=== PATIENT | male | born 1950 | race Caucasian/White ===

== ENCOUNTER 2018-02-02 18:37 | Inpatient (IN) | payer MEDICARE, MEDICAID ==
[~2018-02-02] VITALS: Ht 170.2 cm; Wt 96.8 kg
[2018-02-02] MEDS ORDERED: SODIUM CHLORIDE 0.9% 1000ML BAG (SEPSIS BOLUS) IV ONE (19:30)
[2018-02-02 21:03] LABS: BASOPHILS % 0.5 % (0.0-2.0); EOSINOPHILS % 3.6 % (0.0-5.0); HEMATOCRIT. 33.3 % (42.0-52.0); HEMOGLOBIN. 11.2 g/dL (14.0-18.0); LYMPHOCYTES % 24.2 % (20.0-50.0); MEAN CORPUSCULAR HEMOGLOBIN 30.4 pg (28.0-32.0); MEAN CORPUSCULAR VOLUME 90.7 fL (80.0-94.0); MEAN PLATELET VOLUME 9.6 fl (7.4-10.4); MONOCYTES % 8.9 % (2.0-8.0); NEUTROPHILS % 62.8 % (40.0-76.0); PLATELET 177 x1000/uL (130-400); RED BLOOD CELL COUNT 3.68 mill/uL (4.7-6.1); RED CELL DISTRIBUTION WIDTH 14.1 % (11.6-14.6)
[2018-02-02 21:08] LABS: CHLORIDE 107 mEq/L (98-107)
[2018-02-02 21:09] LABS: PARTIAL THROMBOPLASTIN TIME 24.7 sec (23.4-31.0); PROTHROMBIN TIME 10.1 sec (9.1-11.1)
[2018-02-02 21:30] LABS: CLARITY URINE CLOUDY (CLEAR); COLOR URINE YELLOW (YELLOW); KETONES URINE NEGATIVE (NEGATIVE); LEUKOCYTE ESTERASE URINE 3+ (NEGATIVE); NITRITE URINE NEGATIVE (NEGATIVE); OCCULT BLOOD URINE NEGATIVE (NEGATIVE); PROTEIN URINE NEGATIVE (NEGATIVE)
[2018-02-02] MEDS ORDERED: LEVOFLOXACIN 750MG PREMIX 150 ML IV ONE (21:30)
[2018-02-02] MEDS ORDERED: NITROGLYCERIN 0.4MG TABLET SL SL PRN (22:00)
[2018-02-02] MEDS ORDERED: DOCUSATE SODIUM 100MG CAPSULE PO PRN (22:00)
[2018-02-02] MEDS ORDERED: KETOROLAC 15MG/ML VIAL IV PRN (22:00)
[2018-02-02] MEDS ORDERED: NA PHOS,M-B/NA PHOS,DI-BA ENEMA 118ML PR PRN (22:00)
[2018-02-02] MEDS ORDERED: LORAZEPAM 0.5MG TABLET PO PRN (22:00)
[2018-02-02] MEDS ORDERED: IPRATROPIUM/ALBUTEROL 0.5-3(2.5)MG/3ML NEB INH PRN (22:00)
[2018-02-02] MEDS ORDERED: MORPHINE SULFATE 4 MG/ML CPJ (NOT FOR IM USE) IV PRN (22:00)
[2018-02-02] MEDS ORDERED: GUAIFENESIN 200MG/10ML SUGAR FREE UDC PO PRN (22:00)
[2018-02-02] MEDS ORDERED: ACETAMINOPHEN 325MG TABLET PO PRN (22:00)
[2018-02-02] MEDS ORDERED: TRAMADOL 50MG TABLET PO PRN (22:00)
[2018-02-02] MEDS ORDERED: ONDANSETRON HCL 4MG/2ML INJ IV PRN (22:00)
[2018-02-02] MEDS ORDERED: CLONIDINE 0.1MG TABLET PO PRN (22:00)
[2018-02-02] MEDS ORDERED: MAGNESIUM/ALUMINUM HYDROXIDE/SIMETHICONE 30ML UDC PO PRN (22:00)
[2018-02-02] MEDS: ENOXAPARIN 40MG/0.4ML SYR SUBCUT SCH (22:20)
[2018-02-02 22:38] LABS: T4 FREE 1.2 ng/dL (0.76-1.46)
[2018-02-02 23:04] LABS: FOLIC ACID (FOLATE) SERUM 13.8 ng/mL (>5.38)
[2018-02-02 23:30] VITALS: BP 100/49
[2018-02-03] VITALS: BP 100/41
[2018-02-03] MEDS: SODIUM CHLORIDE 0.9% 1,000 ML IV SCH ×3 (01:27→21:18)
[2018-02-03 01:38] LABS: CREATINE KINASE 66 IU/L (39-308); CREATINE KINASE MB FRACTION < 1.0 ng/mL (0.5-3.6)
[2018-02-03] MEDS ORDERED: CEFTRIAXONE 1 G PREMIX 50 ML IV SCH (02:00)
[2018-02-03 04:00] VITALS: BP 114/61
[2018-02-03 08:07] VITALS: BP 135/69
[2018-02-03 08:21] LABS: CREATINE KINASE 53 IU/L (39-308); CREATINE KINASE MB FRACTION < 1.0 ng/mL (0.5-3.6)
[2018-02-03] MEDS: PANTOPRAZOLE SODIUM 40 MG/VIAL IV SCH (08:49)
[2018-02-03] MEDS: ASCORBIC ACID 500 MG TABLET PO SCH ×2 (08:52→21:19)
[2018-02-03] MEDS: TAMSULOSIN HCL 0.4MG SR CAPSULE PO SCH (08:52)
[2018-02-03] MEDS: ZINC SULFATE 220 MG ( 50 ) CAPSULE PO SCH (08:52)
[2018-02-03] MEDS: DUTASTERIDE 0.5MG CAPSULE PO SCH (08:54)
[2018-02-03 12:00] VITALS: BP 110/58
[2018-02-03 15:34] LABS: METHADONE URINE SCREEN NEGATIVE (NEGATIVE); OPIATES URINE SCREEN NEGATIVE (NEGATIVE); PHENCYCLIDINE URINE SCREEN NEGATIVE (NEGATIVE)
[2018-02-03 15:35] LABS: *AMPHETAMINES SCREEN URINE NEGATIVE (NEGATIVE); *BARBITURATES SCREEN URINE NEGATIVE (NEGATIVE); *BENZODIAZEPINES SCREEN URINE NEGATIVE (NEGATIVE); *COCAINE SCREEN URINE NEGATIVE (NEGATIVE); CANNABINOID URINE SCREEN NEGATIVE (NEGATIVE)
[2018-02-03 16:00] VITALS: BP 120/68
[2018-02-03 20:00] VITALS: BP 137/75
[2018-02-03] MEDS: ENOXAPARIN 40MG/0.4ML SYR SUBCUT SCH (21:18)
[2018-02-03] MEDS: NEOMY SULF/BACITRAC ZN/POLY OINT 28GM TOP SCH (21:18)
[2018-02-03] MEDS ORDERED: LEVOFLOXACIN 500MG PREMIX 100 ML IV SCH (22:00)
[2018-02-04] VITALS: BP 130/67
[2018-02-04 04:00] VITALS: BP 148/74
[2018-02-04] MEDS: CEFTRIAXONE 1 G PREMIX 50 ML IV SCH (05:26)
[2018-02-04 08:30] VITALS: BP 163/91
[2018-02-04] MEDS: ZINC SULFATE 220 MG ( 50 ) CAPSULE PO SCH (09:53)
[2018-02-04] MEDS: DUTASTERIDE 0.5MG CAPSULE PO SCH (09:53)
[2018-02-04] MEDS: ASCORBIC ACID 500 MG TABLET PO SCH ×2 (09:53→20:33)
[2018-02-04] MEDS: PANTOPRAZOLE SODIUM 40 MG/VIAL IV SCH (09:53)
[2018-02-04] MEDS: TAMSULOSIN HCL 0.4MG SR CAPSULE PO SCH (09:53)
[2018-02-04] MEDS: NEOMY SULF/BACITRAC ZN/POLY OINT 28GM TOP SCH ×2 (09:54→20:34)
[2018-02-04 12:00] VITALS: BP 117/65
[2018-02-04 16:00] VITALS: BP 134/76
[2018-02-04] MEDS: SODIUM CHLORIDE 0.9% 1,000 ML IV SCH (17:20)
[2018-02-04] MEDS ORDERED: LEVOFLOXACIN 500MG PREMIX 100 ML IV SCH (18:00)
[2018-02-04 20:00] VITALS: BP 98/48
[2018-02-04] MEDS: ZOLPIDEM TARTRATE 5MG TABLET PO PRN (20:32)
[2018-02-04] MEDS: ENOXAPARIN 30MG/0.3ML SYR SUBCUT SCH (20:33)
[2018-02-05] VITALS (7 sets, daily range): BP systolic 134–154; BP diastolic 70–79
[2018-02-05] MEDS: SODIUM CHLORIDE 0.9% 1,000 ML IV SCH ×3 (02:01→22:01)
[2018-02-05] MEDS: CEFTRIAXONE 1 G PREMIX 50 ML IV SCH ×2 (03:12→23:16)
[2018-02-05] MEDS: ENOXAPARIN 30MG/0.3ML SYR SUBCUT SCH ×2 (08:40→20:50)
[2018-02-05] MEDS: PANTOPRAZOLE SODIUM 40 MG/VIAL IV SCH (08:40)
[2018-02-05] MEDS: ASCORBIC ACID 500 MG TABLET PO SCH ×2 (08:40→20:48)
[2018-02-05] MEDS: TAMSULOSIN HCL 0.4MG SR CAPSULE PO SCH (08:40)
[2018-02-05] MEDS: NEOMY SULF/BACITRAC ZN/POLY OINT 28GM TOP SCH ×2 (08:41→20:49)
[2018-02-05] MEDS: ZINC SULFATE 220 MG ( 50 ) CAPSULE PO SCH (08:41)
[2018-02-05] MEDS: DUTASTERIDE 0.5MG CAPSULE PO SCH (08:41)
[2018-02-05] MEDS: ZOLPIDEM TARTRATE 5MG TABLET PO PRN (20:48)
[2018-02-06] VITALS: BP 130/64
[2018-02-06 04:00] VITALS: BP 128/60
[2018-02-06 08:00] VITALS: BP 137/78
[2018-02-06] MEDS: SODIUM CHLORIDE 0.9% 1,000 ML IV SCH ×2 (08:32→09:01)
[2018-02-06] MEDS: PANTOPRAZOLE SODIUM 40 MG/VIAL IV SCH (08:32)
[2018-02-06] MEDS: DUTASTERIDE 0.5MG CAPSULE PO SCH (08:33)
[2018-02-06] MEDS: ZINC SULFATE 220 MG ( 50 ) CAPSULE PO SCH (08:33)
[2018-02-06] MEDS: ASCORBIC ACID 500 MG TABLET PO SCH ×2 (08:33→20:50)
[2018-02-06] MEDS: ENOXAPARIN 30MG/0.3ML SYR SUBCUT SCH ×2 (08:33→20:50)
[2018-02-06] MEDS: NEOMY SULF/BACITRAC ZN/POLY OINT 28GM TOP SCH ×2 (08:34→20:50)
[2018-02-06] MEDS: TAMSULOSIN HCL 0.4MG SR CAPSULE PO SCH (08:34)
[2018-02-06 12:00] VITALS: BP 95/61
[2018-02-06 16:00] VITALS: BP 97/40
[2018-02-06 17:18] VITALS: BP 97/50
[2018-02-07] MEDS ORDERED: FAMOTIDINE 20MG TABLET PO SCH (09:00)
== END 2018-02-06 21:25 | DRG 872 ==
LOC: ER 18:37 → 5WST 21:51 → SUPCPDRO 21:52 → ENRESERV 22:38 → 5WST 02-03 00:08
PROVIDERS: ADMIT Internal Medicine; ATTEND Internal Medicine
PROC: 0T9B70Z Drainage of Bladder with Drainage Device, Via Natural or Artificial Opening (ICD-10-PCS; principal; 2018-02-02)
DX: A41.9 Sepsis, unspecified organism (principal); N39.0 Urinary tract infection, site not specified; E44.0 Moderate protein-calorie malnutrition; G82.20 Paraplegia, unspecified; R33.9 Retention of urine, unspecified; I95.9 Hypotension, unspecified; E83.51 Hypocalcemia; D63.8 Anemia in other chronic diseases classified elsewhere; E78.00 Pure hypercholesterolemia, unspecified; I10 Essential (primary) hypertension; S30.811A Abrasion of abdominal wall, initial encounter; X58.XXXA Exposure to other specified factors, initial encounter; Y93.89 Activity, other specified; Y92.89 Other specified places as the place of occurrence of the external cause; Y99.8 Other external cause status; Z68.33 Body mass index [BMI] 33.0-33.9, adult
CPT/HCPCS: 36415; 71045; 80061; 80305; 82550; 82553; 82607; 82746; 83036; 83540; 83550; 83605; 83880; 84439; 84443; 84484; 87077; 87186; 93005; 93306; 93970; 96365; 96367; 96372; 97162; 97166; 99285; C9113; J0696; J1650; J1956; J7030; A4315

== ENCOUNTER 2018-05-26 17:06 | Inpatient (IN) | payer MEDICARE, MEDICAID ==
[~2018-05-26] VITALS: Ht 175.3 cm; Wt 98.9 kg
[2018-05-26] MEDS ORDERED: SODIUM CHLORIDE 0.9% 1,000 ML IV ONE (17:59)
[2018-05-26] MEDS ORDERED: ONDANSETRON HCL 4MG/2ML INJ IV STA (17:59)
[2018-05-26] MEDS ORDERED: MECLIZINE 25MG TABLET PO ONE (18:00)
[2018-05-26 18:41] LABS: BASOPHILS % 0.3 % (0.0-2.0); EOSINOPHILS % 0.5 % (0.0-5.0); HEMATOCRIT. 49.8 % (42.0-52.0); LYMPHOCYTES % 8.2 % (20.0-50.0); MEAN CORPUSCULAR HEMOGLOBIN 28.4 pg (28.0-32.0); MEAN CORPUSCULAR VOLUME 88.8 fL (80.0-94.0); MEAN PLATELET VOLUME 10.6 fl (7.4-10.4); PLATELET 210 x1000/uL (130-400); RED BLOOD CELL COUNT 5.61 mill/uL (4.7-6.1); RED CELL DISTRIBUTION WIDTH 14.9 % (11.6-14.6)
[2018-05-26 18:44] LABS: PROTHROMBIN TIME 10.3 sec (9.1-11.1)
[2018-05-26 18:45] LABS: CHLORIDE 108 mEq/L (98-107)
[2018-05-26 18:50] LABS: CLARITY URINE TURBID (CLEAR); COLOR URINE ORANGE (YELLOW); KETONES URINE NEGATIVE (NEGATIVE); LEUKOCYTE ESTERASE URINE 1+ (NEGATIVE); NITRITE URINE POSITIVE (NEGATIVE); OCCULT BLOOD URINE 3+ (NEGATIVE); PH URINE 7.5 (4.5-8.0); PROTEIN URINE 4+ (NEGATIVE); SPECIFIC GRAVITY URINE 1.036 (1.005-1.030); UROBILINOGEN URINE 0.2 E.U./dL (0.2-1.0)
[2018-05-26] MEDS ORDERED: CEFEPIME 1,000 MG in DEXTROSE 5% WATER 50 ML IV STA (20:51)
[2018-05-26] MEDS ORDERED: SODIUM CHLORIDE 0.9% 1,000 ML IV SCH (23:09)
[2018-05-26] MEDS ORDERED: NITROGLYCERIN 0.4MG TABLET SL SL PRN (23:15)
[2018-05-26] MEDS ORDERED: DOCUSATE SODIUM 100MG CAPSULE PO PRN (23:15)
[2018-05-26] MEDS ORDERED: IPRATROPIUM/ALBUTEROL 0.5-3(2.5)MG/3ML NEB INH PRN (23:15)
[2018-05-26] MEDS: ENOXAPARIN 40MG/0.4ML SYR SUBCUT SCH (23:15)
[2018-05-26] MEDS ORDERED: MAGNESIUM/ALUMINUM HYDROXIDE/SIMETHICONE 30ML UDC PO PRN (23:15)
[2018-05-26] MEDS ORDERED: TRAMADOL 50MG TABLET PO PRN (23:15)
[2018-05-26] MEDS ORDERED: CLONIDINE 0.1MG TABLET PO PRN (23:15)
[2018-05-26] MEDS ORDERED: MORPHINE SULFATE 4 MG/ML CPJ (NOT FOR IM USE) IV PRN (23:15)
[2018-05-27] MEDS: LEVOFLOXACIN 500MG PREMIX 100 ML IV SCH
[2018-05-27] MEDS: ACETAMINOPHEN 325MG TABLET PO PRN (03:47)
[2018-05-27] MEDS: ONDANSETRON HCL 4MG/2ML INJ IV PRN (04:49)
[2018-05-27] MEDS ORDERED: SODIUM CHLORIDE 0.9% 1,000 ML IV ONE (07:45)
[2018-05-27] MEDS ORDERED: DOPAMINE 400MG/250ML PREMIX 250 ML IV ONE (09:04)
[2018-05-27] MEDS ORDERED: NOREPINEPHRINE 4 MG in DEXT 5% WATER 246 ML IV ONE ×2 (10:00→19:00)
[2018-05-27] MEDS ORDERED: NOREPINEPHRINE 4MG/250ML PMX 250 ML IV ONE (10:15)
[2018-05-27] MEDS ORDERED: CEFTRIAXONE 2 G PREMIX 50 ML IV ONE (10:45)
[2018-05-27 11:09] LABS: BASOPHILS % 0.5 % (0.0-2.0); EOSINOPHILS % 0.1 % (0.0-5.0); HEMATOCRIT. 44.9 % (42.0-52.0); HEMOGLOBIN. 14.4 g/dL (14.0-18.0); LYMPHOCYTES % 11.3 % (20.0-50.0); MEAN CORPUSCULAR HEMOGLOBIN 28.7 pg (28.0-32.0); MEAN CORPUSCULAR VOLUME 89.6 fL (80.0-94.0); MEAN PLATELET VOLUME 10.7 fl (7.4-10.4); MONOCYTES % 7.9 % (2.0-8.0); NEUTROPHILS % 80.2 % (40.0-76.0); PLATELET 129 x1000/uL (130-400); RED BLOOD CELL COUNT 5.02 mill/uL (4.7-6.1); RED CELL DISTRIBUTION WIDTH 15.3 % (11.6-14.6)
[2018-05-27 11:16] LABS: CHLORIDE 115 mEq/L (98-107)
[2018-05-27 11:27] LABS: T4 FREE 1.51 ng/dL (0.76-1.46)
[2018-05-27 11:41] LABS: INR 1.1; PARTIAL THROMBOPLASTIN TIME 24.9 sec (23.4-31.0); PROTHROMBIN TIME 11.1 sec (9.1-11.1)
[2018-05-27] MEDS ORDERED: CEFTRIAXONE 2 G PREMIX 50 ML IV NR (12:27)
[2018-05-27] MEDS ORDERED: NOREPINEPHRINE 4MG/250ML PMX 250 ML IV NR (19:00)
[2018-05-27] MEDS ORDERED: SODIUM BICARBONATE 50 MEQ in SODIUM CHLORIDE 0.45% 1,000 ML IV NR ×3 (20:00)
[2018-05-28] VITALS (61 sets, daily range): BP systolic 65–215; BP diastolic 29–153
[2018-05-28] MEDS: LEVOFLOXACIN 500MG PREMIX 100 ML IV SCH (06:01)
[2018-05-28] MEDS: ENOXAPARIN 40MG/0.4ML SYR SUBCUT SCH ×2 (06:02→09:00)
[2018-05-28] MEDS ORDERED: NOREPINEPHRINE 8 MG in DEXT 5% WATER 242 ML IV PRN ×2 (09:15→17:45)
[2018-05-28 10:41] LABS: BASOPHILS % 0.8 % (0.0-2.0); EOSINOPHILS % 1.1 % (0.0-5.0); HEMATOCRIT. 36.8 % (42.0-52.0); HEMOGLOBIN. 11.8 g/dL (14.0-18.0); LYMPHOCYTES % 13.2 % (20.0-50.0); MEAN CORPUSCULAR HEMOGLOBIN 28.2 pg (28.0-32.0); MEAN CORPUSCULAR VOLUME 87.6 fL (80.0-94.0); MEAN PLATELET VOLUME 9.9 fl (7.4-10.4); MONOCYTES % 9.3 % (2.0-8.0); NEUTROPHILS % 75.6 % (40.0-76.0); PLATELET 155 x1000/uL (130-400); RED CELL DISTRIBUTION WIDTH 15.2 % (11.6-14.6)
[2018-05-28 11:02] LABS: CHLORIDE 111 mEq/L (98-107)
[2018-05-28] MEDS: CEFTRIAXONE 1,000 MG in DEXTROSE 5% WATER 50 ML IV SCH (11:15)
[2018-05-28] MEDS: ASCORBIC ACID 500 MG TABLET PO SCH ×2 (11:15→21:40)
[2018-05-28] MEDS: ZINC SULFATE 220 MG ( 50 ) CAPSULE PO SCH (11:15)
[2018-05-28] MEDS ORDERED: SORBITOL 70% SOLN 30ML PO NR (12:15)
[2018-05-28] MEDS: ONDANSETRON HCL 4MG/2ML INJ IV PRN (13:33)
[2018-05-28] MEDS: SODIUM CHLORIDE 0.45% 1,000 ML IV SCH (13:33)
[2018-05-28] MEDS ORDERED: ZOLPIDEM TARTRATE 5MG TABLET PO PRN (18:00)
[2018-05-28] MEDS: DOCUSATE SODIUM 100MG CAPSULE PO SCH (18:03)
[2018-05-28] MEDS: MIDODRINE HCL 5MG TABLET PO SCH (18:03)
[2018-05-28] MEDS: FAMOTIDINE 20MG TABLET PO SCH (21:40)
[2018-05-29] VITALS (97 sets, daily range): BP systolic 59–242; BP diastolic 29–179
[2018-05-29] MEDS: LEVOFLOXACIN 500MG PREMIX 100 ML IV SCH (01:10)
[2018-05-29] MEDS: SODIUM CHLORIDE 0.45% 1,000 ML IV SCH (01:12)
[2018-05-29 04:49] LABS: HEMATOCRIT. 34.1 % (42.0-52.0); HEMOGLOBIN. 11.3 g/dL (14.0-18.0); MEAN CORPUSCULAR HEMOGLOBIN 28.9 pg (28.0-32.0); MEAN CORPUSCULAR VOLUME 87.4 fL (80.0-94.0); MEAN PLATELET VOLUME 10.2 fl (7.4-10.4); PLATELET 148 x1000/uL (130-400); RED BLOOD CELL COUNT 3.91 mill/uL (4.7-6.1)
[2018-05-29 04:52] LABS: CHLORIDE 109 mEq/L (98-107)
[2018-05-29 05:16] LABS: PHOSPHORUS 2.5 mg/dL (2.5-4.9)
[2018-05-29 09:00] LABS: PLATELET ESTIMATE NORMAL
[2018-05-29] MEDS ORDERED: SORBITOL 70% SOLN 30ML PO NR (09:15)
[2018-05-29] MEDS: ASCORBIC ACID 500 MG TABLET PO SCH ×2 (09:16→21:28)
[2018-05-29] MEDS: DOCUSATE SODIUM 100MG CAPSULE PO SCH ×2 (09:16→17:17)
[2018-05-29] MEDS: FAMOTIDINE 20MG TABLET PO SCH ×2 (09:16→21:28)
[2018-05-29] MEDS: ZINC SULFATE 220 MG ( 50 ) CAPSULE PO SCH (09:16)
[2018-05-29] MEDS: MIDODRINE HCL 5MG TABLET PO SCH ×3 (09:18→17:19)
[2018-05-29] MEDS ORDERED: MAGNESIUM 2 G PREMIX 50 ML IV SCH (10:30)
[2018-05-29] MEDS: CEFTRIAXONE 1,000 MG in DEXTROSE 5% WATER 50 ML IV SCH (11:25)
[2018-05-29] MEDS: GUAIFENESIN 200MG/10ML SUGAR FREE UDC PO PRN (23:10)
[2018-05-30] VITALS (50 sets, daily range): BP systolic 44–194; BP diastolic 27–101
[2018-05-30] MEDS ORDERED: LEVOFLOXACIN 500MG PREMIX 100 ML IV SCH (01:00)
[2018-05-30] MEDS: GUAIFENESIN 200MG/10ML SUGAR FREE UDC PO PRN ×3 (03:29→22:16)
[2018-05-30 05:04] LABS: BASOPHILS % 0.7 % (0.0-2.0); EOSINOPHILS % 3.1 % (0.0-5.0); HEMATOCRIT. 32.7 % (42.0-52.0); HEMOGLOBIN. 10.9 g/dL (14.0-18.0); LYMPHOCYTES % 8.3 % (20.0-50.0); MEAN CORPUSCULAR HEMOGLOBIN 29.1 pg (28.0-32.0); MEAN CORPUSCULAR VOLUME 87.3 fL (80.0-94.0); MEAN PLATELET VOLUME 9.6 fl (7.4-10.4); MONOCYTES % 6.2 % (2.0-8.0); NEUTROPHILS % 81.7 % (40.0-76.0); PLATELET 139 x1000/uL (130-400); RED BLOOD CELL COUNT 3.75 mill/uL (4.7-6.1)
[2018-05-30 05:10] LABS: CHLORIDE 112 mEq/L (98-107)
[2018-05-30 05:15] LABS: PHOSPHORUS 3.6 mg/dL (2.5-4.9)
[2018-05-30 05:17] LABS: LDL CHOLESTEROL 62 mg/dL (5-100)
[2018-05-30 05:18] LABS: HDL CHOLESTEROL 35 mg/dL (40-59)
[2018-05-30] MEDS ORDERED: GUAIFENESIN-DM 200MG-20MG/10ML UDC PO PRN (08:15)
[2018-05-30] MEDS ORDERED: SORBITOL 70% SOLN 30ML PO ONE (08:15)
[2018-05-30] MEDS: ZINC SULFATE 220 MG ( 50 ) CAPSULE PO SCH (08:52)
[2018-05-30] MEDS: MIDODRINE HCL 5MG TABLET PO SCH ×3 (08:52→17:02)
[2018-05-30] MEDS: FAMOTIDINE 20MG TABLET PO SCH ×2 (08:52→22:17)
[2018-05-30] MEDS: DOCUSATE SODIUM 100MG CAPSULE PO SCH ×2 (08:52→17:02)
[2018-05-30] MEDS: ASCORBIC ACID 500 MG TABLET PO SCH ×2 (08:52→22:17)
[2018-05-30] MEDS: PHENYLEPHRINE 10 MG in DEXT 5% WATER 249 ML IV PRN ×2 (11:44→16:13)
[2018-05-30] MEDS ORDERED: AMIODARONE HCL 900 MG in DEXT 5% WATER 500 ML IV SCH (11:45)
[2018-05-30] MEDS ORDERED: AMIODARONE HCL 50MG/ML 3ML VIAL IV ONE (11:45)
[2018-05-30] MEDS ORDERED: AMIODARONE HCL 150 MG in DEXT 5% WATER 100 ML IV ONE (11:45)
[2018-05-30] MEDS: CEFTRIAXONE 1,000 MG in DEXTROSE 5% WATER 50 ML IV SCH (11:45)
[2018-05-30] MEDS ORDERED: DILTIAZEM HCL 125 MG in DEXT 5% WATER 100 ML IV PRN (13:00)
[2018-05-30] MEDS: PHENYLEPHRINE 20 MG in DEXT 5% WATER 498 ML IV PRN (21:57)
[2018-05-30] MEDS: ACETAMINOPHEN 325MG TABLET PO PRN (22:17)
[2018-05-31] VITALS (69 sets, daily range): BP systolic 53–168; BP diastolic 23–103
[2018-05-31] MEDS: GUAIFENESIN 200MG/10ML SUGAR FREE UDC PO PRN (00:47)
[2018-05-31 07:24] LABS: BASOPHILS % 0.3 % (0.0-2.0); EOSINOPHILS % 0.7 % (0.0-5.0); HEMATOCRIT. 32.3 % (42.0-52.0); HEMOGLOBIN. 10.8 g/dL (14.0-18.0); LYMPHOCYTES % 8.5 % (20.0-50.0); MEAN CORPUSCULAR HEMOGLOBIN 29.1 pg (28.0-32.0); MEAN PLATELET VOLUME 9.3 fl (7.4-10.4); MONOCYTES % 8.7 % (2.0-8.0); NEUTROPHILS % 81.8 % (40.0-76.0); PLATELET 112 x1000/uL (130-400); RED BLOOD CELL COUNT 3.71 mill/uL (4.7-6.1); RED CELL DISTRIBUTION WIDTH 14.6 % (11.6-14.6)
[2018-05-31 07:37] LABS: CHLORIDE 106 mEq/L (98-107)
[2018-05-31 07:52] LABS: PHOSPHORUS 3.4 mg/dL (2.5-4.9)
[2018-05-31] MEDS ORDERED: THROAT LOZENGES-BENZOCAINE/MENTH/CETYLPYRD CL LOZENGES MM PRN (08:30)
[2018-05-31] MEDS ORDERED: MAGNESIUM 2 G PREMIX 50 ML IV NR (08:30)
[2018-05-31] MEDS: PHENYLEPHRINE 20 MG in DEXT 5% WATER 498 ML IV PRN (08:45)
[2018-05-31] MEDS: MIDODRINE HCL 5MG TABLET PO SCH ×3 (08:47→16:26)
[2018-05-31] MEDS: DOCUSATE SODIUM 100MG CAPSULE PO SCH ×2 (08:47→16:26)
[2018-05-31] MEDS: ASCORBIC ACID 500 MG TABLET PO SCH ×2 (08:47→21:22)
[2018-05-31] MEDS: ZINC SULFATE 220 MG ( 50 ) CAPSULE PO SCH (08:47)
[2018-05-31] MEDS: POTASSIUM CHLORIDE 20MEQ TABLET SR PO SCH ×2 (08:50→12:00)
[2018-05-31] MEDS: FAMOTIDINE 20MG TABLET PO SCH ×2 (08:52→21:22)
[2018-05-31] MEDS: ONDANSETRON HCL 4MG/2ML INJ IV PRN (10:11)
[2018-05-31] MEDS: CEFTRIAXONE 1,000 MG in DEXTROSE 5% WATER 50 ML IV SCH (12:54)
[2018-05-31] MEDS: CEFAZOLIN 1000MG PREMIX 50 ML IV SCH (14:54)
[2018-05-31] MEDS: AMIODARONE HCL 200 MG TABLET PO SCH (21:22)
[2018-06-01] VITALS (36 sets, daily range): BP systolic 96–166; BP diastolic 41–132
[2018-06-01] MEDS: CEFAZOLIN 1000MG PREMIX 50 ML IV SCH ×4 (00:15→20:51)
[2018-06-01 08:08] LABS: BASOPHILS % 0.3 % (0.0-2.0); EOSINOPHILS % 0.3 % (0.0-5.0); HEMATOCRIT. 27.9 % (42.0-52.0); HEMOGLOBIN. 9.4 g/dL (14.0-18.0); LYMPHOCYTES % 15.7 % (20.0-50.0); MEAN CORPUSCULAR HEMOGLOBIN 29.2 pg (28.0-32.0); MEAN CORPUSCULAR VOLUME 86.7 fL (80.0-94.0); MEAN PLATELET VOLUME 9.2 fl (7.4-10.4); MONOCYTES % 11.7 % (2.0-8.0); PLATELET 107 x1000/uL (130-400); RED BLOOD CELL COUNT 3.21 mill/uL (4.7-6.1); RED CELL DISTRIBUTION WIDTH 14.5 % (11.6-14.6)
[2018-06-01] MEDS: AMIODARONE HCL 200 MG TABLET PO SCH (08:14)
[2018-06-01] MEDS: ZINC SULFATE 220 MG ( 50 ) CAPSULE PO SCH (08:14)
[2018-06-01] MEDS: DOCUSATE SODIUM 100MG CAPSULE PO SCH ×2 (08:14→16:46)
[2018-06-01] MEDS: ASCORBIC ACID 500 MG TABLET PO SCH ×2 (08:14→20:50)
[2018-06-01] MEDS: FAMOTIDINE 20MG TABLET PO SCH ×2 (08:15→20:50)
[2018-06-01] MEDS: MIDODRINE HCL 5MG TABLET PO SCH ×3 (08:15→16:48)
[2018-06-01 08:51] LABS: CHLORIDE 107 mEq/L (98-107)
[2018-06-01 08:58] LABS: PHOSPHORUS 2.5 mg/dL (2.5-4.9)
[2018-06-01] MEDS ORDERED: POTASSIUM CHLORIDE 20MEQ/PACKET PO SCH (09:15)
[2018-06-01] MEDS ORDERED: MAGNESIUM 2 G PREMIX 50 ML IV SCH (11:00)
[2018-06-01] MEDS: FLUDROCORTISONE ACETATE 0.1MG TABLET PO SCH (13:00)
[2018-06-02] VITALS (13 sets, daily range): BP systolic 75–176; BP diastolic 43–98
[2018-06-02] MEDS: CEFAZOLIN 1000MG PREMIX 50 ML IV SCH ×3 (05:22→21:26)
[2018-06-02 07:36] LABS: BASOPHILS % 0.7 % (0.0-2.0); EOSINOPHILS % 2.7 % (0.0-5.0); HEMATOCRIT. 29.7 % (42.0-52.0); HEMOGLOBIN. 9.8 g/dL (14.0-18.0); MEAN CORPUSCULAR HEMOGLOBIN 28.7 pg (28.0-32.0); MEAN CORPUSCULAR VOLUME 87.1 fL (80.0-94.0); MEAN PLATELET VOLUME 9.4 fl (7.4-10.4); MONOCYTES % 13.7 % (2.0-8.0); NEUTROPHILS % 58.9 % (40.0-76.0); PLATELET 132 x1000/uL (130-400); RED BLOOD CELL COUNT 3.41 mill/uL (4.7-6.1); RED CELL DISTRIBUTION WIDTH 14.5 % (11.6-14.6)
[2018-06-02 07:47] LABS: CHLORIDE 107 mEq/L (98-107)
[2018-06-02] MEDS: DOCUSATE SODIUM 100MG CAPSULE PO SCH ×2 (08:00→17:12)
[2018-06-02] MEDS: ZINC SULFATE 220 MG ( 50 ) CAPSULE PO SCH (08:00)
[2018-06-02] MEDS: FLUDROCORTISONE ACETATE 0.1MG TABLET PO SCH (08:00)
[2018-06-02] MEDS: MIDODRINE HCL 5MG TABLET PO SCH ×2 (08:00→13:00)
[2018-06-02] MEDS: AMIODARONE HCL 200 MG TABLET PO SCH (08:00)
[2018-06-02] MEDS: ASCORBIC ACID 500 MG TABLET PO SCH ×2 (08:00→21:26)
[2018-06-02] MEDS: FAMOTIDINE 20MG TABLET PO SCH ×2 (08:00→21:26)
[2018-06-03] VITALS (11 sets, daily range): BP systolic 111–176; BP diastolic 46–97
[2018-06-03] MEDS: CEFAZOLIN 1000MG PREMIX 50 ML IV SCH ×2 (05:34→15:01)
[2018-06-03] MEDS: FAMOTIDINE 20MG TABLET PO SCH (08:11)
[2018-06-03] MEDS: ZINC SULFATE 220 MG ( 50 ) CAPSULE PO SCH (08:11)
[2018-06-03] MEDS: FLUDROCORTISONE ACETATE 0.1MG TABLET PO SCH (08:11)
[2018-06-03] MEDS: ASCORBIC ACID 500 MG TABLET PO SCH (08:11)
[2018-06-03] MEDS: AMIODARONE HCL 200 MG TABLET PO SCH (08:11)
[2018-06-03] MEDS: DOCUSATE SODIUM 100MG CAPSULE PO SCH ×2 (08:11→16:54)
[2018-06-03] MEDS ORDERED: POTASSIUM CHLORIDE 20MEQ/PACKET PO SCH (14:30)
[2018-06-03] MEDS ORDERED: MAGNESIUM 2 G PREMIX 50 ML IV NR (16:00)
== END 2018-06-03 19:22 | disposition home health service (06) | DRG 871 ==
LOC: ER 17:06 → EDBEDREQ 22:55 → EDBEDREQTM 22:55 → ENRESERV 05-27 08:07 → CANRESERV 05-27 08:07 → EDBEDREQSVC 05-27 10:05 → EDBEDREQDT 05-27 10:05 → EDBEDREQ 05-27 10:05 → EDBEDREQTM 05-27 10:05 → EDBEDREQ 05-27 10:06 → ENRESERV 05-28 07:17 → CVICU 05-28 07:17 → 3WST 06-01 23:37
PROVIDERS: ADMIT Internal Medicine; ATTEND Internal Medicine
PROC: 02HV33Z Insertion of Infusion Device into Superior Vena Cava, Percutaneous Approach (ICD-10-PCS; principal; 2018-05-27)
PROC: B548ZZA Ultrasonography of Superior Vena Cava, Guidance (ICD-10-PCS; 2018-05-27)
DX: A41.9 Sepsis, unspecified organism (principal); R65.21 Severe sepsis with septic shock; E44.0 Moderate protein-calorie malnutrition; G82.20 Paraplegia, unspecified; N13.6 Pyonephrosis; N17.9 Acute kidney failure, unspecified; E83.51 Hypocalcemia; E78.5 Hyperlipidemia, unspecified; I10 Essential (primary) hypertension; E11.43 Type 2 diabetes mellitus with diabetic autonomic (poly)neuropathy; K21.9 Gastro-esophageal reflux disease without esophagitis; I48.0 Paroxysmal atrial fibrillation; K56.41 Fecal impaction; E83.42 Hypomagnesemia; N31.9 Neuromuscular dysfunction of bladder, unspecified; R05 Cough; E87.6 Hypokalemia; Z82.3 Family history of stroke; Z68.32 Body mass index [BMI] 32.0-32.9, adult; Z89.439 Acquired absence of unspecified foot; Z87.828 Personal history of other (healed) physical injury and trauma
CPT/HCPCS: 36415; 36569; 51702; 71045; 74176; 76770; 76937; 80048; 80061; 80076; 83036; 83735; 83880; 84100; 84153; 84439; 84443; 84481; 84484; 85379; 87077; 87186; 93005; 93306; 93970; 94640; 96365; 96366; 96367; 96375; 96376; 97162; 97166; 97530; 99291; A6261; C1725; J0282; J0690; J0692; J0696; J1265; J1650; J1956; J2270; J2370; J2405; J3475; J3490; J7030; J7040; J7050; J7060; J7620; J8597; G0103

== ENCOUNTER 2018-06-16 18:41 | Inpatient (IN) | payer MEDICARE, MEDICAID ==
[~2018-06-16] VITALS: Ht 167.6 cm; Wt 108.4 kg
[2018-06-16] MEDS ORDERED: ONDANSETRON HCL 4MG/2ML INJ IV STA (20:04)
[2018-06-16] MEDS ORDERED: SODIUM CHLORIDE 0.9% 1000ML BAG (SEPSIS BOLUS) IV ONE (20:15)
[2018-06-16] MEDS ORDERED: CEFTRIAXONE 1 G PREMIX 50 ML IV ONE (20:15)
[2018-06-16 21:25] LABS: BASOPHILS % 0.2 % (0.0-2.0); EOSINOPHILS % 0.1 % (0.0-5.0); HEMATOCRIT. 32.1 % (42.0-52.0); HEMOGLOBIN. 10.7 g/dL (14.0-18.0); LYMPHOCYTES % 7.3 % (20.0-50.0); MEAN PLATELET VOLUME 9.4 fl (7.4-10.4); MONOCYTES % 9.8 % (2.0-8.0); NEUTROPHILS % 82.6 % (40.0-76.0); PLATELET 227 x1000/uL (130-400); RED BLOOD CELL COUNT 3.69 mill/uL (4.7-6.1)
[2018-06-16 21:31] LABS: CHLORIDE 109 mEq/L (98-107)
[2018-06-16 21:36] LABS: ETHANOL BLOOD < 10 mg/dL
[2018-06-16 21:52] LABS: INR 1.2; PROTHROMBIN TIME 12.1 sec (9.1-11.1)
[2018-06-16 22:48] LABS: CLARITY URINE TURBID (CLEAR); COLOR URINE YELLOW (YELLOW); KETONES URINE NEGATIVE (NEGATIVE); LEUKOCYTE ESTERASE URINE 3+ (NEGATIVE); NITRITE URINE NEGATIVE (NEGATIVE); OCCULT BLOOD URINE 1+ (NEGATIVE); PH URINE 6.5 (4.5-8.0); PROTEIN URINE TRACE (NEGATIVE); SPECIFIC GRAVITY URINE 1.009 (1.005-1.030); UROBILINOGEN URINE 0.2 E.U./dL (0.2-1.0)
[2018-06-16 23:04] LABS: *AMPHETAMINES SCREEN URINE NEGATIVE (NEGATIVE); *BARBITURATES SCREEN URINE NEGATIVE (NEGATIVE); *BENZODIAZEPINES SCREEN URINE NEGATIVE (NEGATIVE)
[2018-06-16 23:06] LABS: *COCAINE SCREEN URINE NEGATIVE (NEGATIVE); CANNABINOID URINE SCREEN NEGATIVE (NEGATIVE); METHADONE URINE SCREEN NEGATIVE (NEGATIVE); OPIATES URINE SCREEN NEGATIVE (NEGATIVE); PHENCYCLIDINE URINE SCREEN NEGATIVE (NEGATIVE)
[2018-06-17] MEDS ORDERED: IPRATROPIUM/ALBUTEROL 0.5-3(2.5)MG/3ML NEB INH PRN
[2018-06-17] MEDS ORDERED: LORAZEPAM 2MG/ML CPJ IV PRN
[2018-06-17] MEDS ORDERED: DOCUSATE SODIUM 100MG CAPSULE PO PRN
[2018-06-17] MEDS ORDERED: CLONIDINE 0.1MG TABLET PO PRN
[2018-06-17] MEDS ORDERED: ONDANSETRON HCL 4MG/2ML INJ IV PRN
[2018-06-17] MEDS ORDERED: NA PHOS,M-B/NA PHOS,DI-BA ENEMA 118ML PR PRN
[2018-06-17] MEDS ORDERED: MAGNESIUM/ALUMINUM HYDROXIDE/SIMETHICONE 30ML UDC PO PRN
[2018-06-17] MEDS ORDERED: HYDROCODONE/ACETAMINOPHEN 5/325MG TABLET PO PRN
[2018-06-17] MEDS ORDERED: GUAIFENESIN 200MG/10ML SUGAR FREE UDC PO PRN
[2018-06-17] MEDS: SODIUM CHLORIDE 0.45% 1,000 ML IV SCH ×2 (01:36→20:45)
[2018-06-17] MEDS: LEVOFLOXACIN 500MG PREMIX 100 ML IV NR ×2 (01:38→01:39)
[2018-06-17] MEDS: ACETAMINOPHEN 325MG TABLET PO PRN (01:39)
[2018-06-17 06:38] LABS: BASOPHILS % 0.6 % (0.0-2.0); EOSINOPHILS % 0.2 % (0.0-5.0); HEMATOCRIT. 32.1 % (42.0-52.0); HEMOGLOBIN. 10.5 g/dL (14.0-18.0); MEAN CORPUSCULAR HEMOGLOBIN 28.4 pg (28.0-32.0); MEAN CORPUSCULAR VOLUME 86.7 fL (80.0-94.0); MEAN PLATELET VOLUME 9.8 fl (7.4-10.4); MONOCYTES % 8.7 % (2.0-8.0); NEUTROPHILS % 82.5 % (40.0-76.0); PLATELET 185 x1000/uL (130-400); RED CELL DISTRIBUTION WIDTH 15.3 % (11.6-14.6)
[2018-06-17 06:42] LABS: CHLORIDE 111 mEq/L (98-107)
[2018-06-17 06:52] LABS: LDL CHOLESTEROL 30 mg/dL (5-100)
[2018-06-17 06:55] LABS: HDL CHOLESTEROL 41 mg/dL (40-59)
[2018-06-17] MEDS: ENOXAPARIN 40MG/0.4ML SYR SUBCUT SCH (09:00)
[2018-06-17] MEDS: ASPIRIN 81MG EC TABLET PO SCH (09:00)
[2018-06-17 17:00] VITALS: BP 101/59
[2018-06-17] MEDS ORDERED: HYDROMORPHONE HCL/PF 2MG/ML CPJ IV PRN (17:00)
[2018-06-17 20:19] VITALS: BP 97/41
[2018-06-17] MEDS: LEVOFLOXACIN 500MG PREMIX 100 ML IV SCH (23:52)
[2018-06-18] MEDS ORDERED: LEVOFLOXACIN 500MG PREMIX 100 ML IV SCH
[2018-06-18] MEDS: ACETAMINOPHEN 325MG TABLET PO PRN (00:06)
[2018-06-18 00:42] VITALS: BP 102/50
[2018-06-18 04:40] VITALS: BP 96/51
[2018-06-18 08:00] VITALS: BP 165/81
[2018-06-18] MEDS: ENOXAPARIN 40MG/0.4ML SYR SUBCUT SCH (08:24)
[2018-06-18] MEDS: ASPIRIN 81MG EC TABLET PO SCH (08:24)
[2018-06-18 12:00] VITALS: BP 98/50
[2018-06-18 16:00] VITALS: BP 160/82
[2018-06-18] MEDS: SODIUM CHLORIDE 0.45% 1,000 ML IV SCH (18:52)
[2018-06-18 20:20] VITALS: BP 100/43
[2018-06-18] MEDS: LEVOFLOXACIN 500MG PREMIX 100 ML IV SCH (23:41)
[2018-06-19 00:46] VITALS: BP 115/62
[2018-06-19 04:00] VITALS: BP 130/61
[2018-06-19 06:38] LABS: BASOPHILS % 0.3 % (0.0-2.0); EOSINOPHILS % 0.7 % (0.0-5.0); HEMATOCRIT. 29.4 % (42.0-52.0); HEMOGLOBIN. 9.8 g/dL (14.0-18.0); MEAN CORPUSCULAR HEMOGLOBIN 28.8 pg (28.0-32.0); MEAN CORPUSCULAR VOLUME 86.7 fL (80.0-94.0); MEAN PLATELET VOLUME 9.6 fl (7.4-10.4); MONOCYTES % 12.9 % (2.0-8.0); NEUTROPHILS % 74.1 % (40.0-76.0); PLATELET 161 x1000/uL (130-400); RED CELL DISTRIBUTION WIDTH 14.9 % (11.6-14.6)
[2018-06-19 08:00] VITALS: BP 111/82
[2018-06-19] MEDS: ENOXAPARIN 40MG/0.4ML SYR SUBCUT SCH (08:37)
[2018-06-19] MEDS: ASPIRIN 81MG EC TABLET PO SCH (08:37)
[2018-06-19 08:50] LABS: CHLORIDE 110 mEq/L (98-107)
[2018-06-19 09:59] LABS: BG BASE EXCESS -2.9 mmol/L (-2.0-2.0); BG CARBOXYHEMOGLOBIN 1.5 % (0.5-1.5); BG DEOXYHEMOGLOBIN 4.1 % (0.0-5.0); BG FRACTION INSPIRED OXYGEN 21; BG HCO3 ACT 20.9 mmol/L (22.0-26.0); BG METHEMOGLOBIN 0.3 % (0.0-1.5); BG OXYGEN SATURATION 95.8 % (92.0-98.5); BG OXYHEMOGLOBIN 94.1 % (94.0-97.0); BG PCO2 32.3 mmHg (35.0-45.0); BG PH 7.429 (7.350-7.450); BG PO2 79.5 mmHg (75.0-100.0); BG SAMPLE SITE RIGHT BRACHIAL; BG TOTAL HEMOGLOBIN 9.3 g/dL (12.0-18.0); BG VENT MODE ROOM AIR
[2018-06-19 12:00] VITALS: BP 105/51
[2018-06-19] MEDS ORDERED: VANCOMYCIN 1,750 MG in DEXT 5% WATER 500 ML IV NR (12:30)
[2018-06-19] MEDS: SODIUM CHLORIDE 0.45% 1,000 ML IV SCH (13:09)
[2018-06-19 16:00] VITALS: BP 95/58
[2018-06-19 20:07] VITALS: BP 94/46
[2018-06-19] MEDS: VANCOMYCIN 1,000 MG in DEXT 5% WATER 250 ML IV SCH (21:33)
[2018-06-20] VITALS: BP 207/97
[2018-06-20] MEDS: LEVOFLOXACIN 500MG PREMIX 100 ML IV SCH (01:32)
[2018-06-20 04:00] VITALS: BP 143/69
[2018-06-20 08:00] VITALS: BP 193/107
[2018-06-20] MEDS: SODIUM CHLORIDE 0.45% 1,000 ML IV SCH (08:42)
[2018-06-20] MEDS: ENOXAPARIN 40MG/0.4ML SYR SUBCUT SCH (08:42)
[2018-06-20] MEDS: ASPIRIN 81MG EC TABLET PO SCH (08:42)
[2018-06-20 10:14] VITALS: BP 110/72
[2018-06-20] MEDS: VANCOMYCIN 1,000 MG in DEXT 5% WATER 250 ML IV SCH (10:49)
[2018-06-20 12:00] VITALS: BP 104/80
== END 2018-06-20 12:49 | disposition home or self-care (01) | DRG 871 ==
LOC: ER 18:41 → EDBEDREQTM 22:07 → EDBEDREQ 22:07 → EDBEDREQSVC 06-17 11:51 → ENRESERV 06-17 14:52 → 6WST 06-17 16:33
PROVIDERS: ADMIT Internal Medicine; ATTEND Internal Medicine
DX: A41.9 Sepsis, unspecified organism (principal); G93.41 Metabolic encephalopathy; N39.0 Urinary tract infection, site not specified; E46 Unspecified protein-calorie malnutrition; G82.20 Paraplegia, unspecified; D64.9 Anemia, unspecified; I10 Essential (primary) hypertension; L89.150 Pressure ulcer of sacral region, unstageable; L29.9 Pruritus, unspecified; N31.9 Neuromuscular dysfunction of bladder, unspecified; E78.5 Hyperlipidemia, unspecified; I25.10 Atherosclerotic heart disease of native coronary artery without angina pectoris; I48.91 Unspecified atrial fibrillation; E11.9 Type 2 diabetes mellitus without complications; B96.89 Other specified bacterial agents as the cause of diseases classified elsewhere; Z68.38 Body mass index [BMI] 38.0-38.9, adult
CPT/HCPCS: 36415; 36600; 71045; 80048; 80061; 80305; 80320; 82375; 82805; 82962; 83605; 84134; 84145; 84439; 84443; 84484; 85651; 87077; 87186; 87804; 93005; 93970; 96374; 96375; 99285; C1893; J0696; J1650; J1956; J2405; J3370; J7030; J7060; G0480

== ENCOUNTER 2019-05-20 16:09 | Inpatient (IN) | payer MEDICARE, MEDICAID ==
[~2019-05-20] VITALS: Ht 167.6 cm; Wt 92.5 kg
[2019-05-20] MEDS ORDERED: ONDANSETRON HCL 4MG/2ML INJ IV STA ×2 (16:17→18:01)
[2019-05-20 17:40] LABS: CHLORIDE 106 mEq/L (98-107)
[2019-05-20 17:50] LABS: HEMATOCRIT. 31.2 % (42.0-52.0); HEMOGLOBIN. 10.2 g/dL (14.0-18.0); MEAN CORPUSCULAR HEMOGLOBIN 27.8 pg (28.0-32.0); MEAN CORPUSCULAR VOLUME 85.6 fL (80.0-94.0); MEAN PLATELET VOLUME 7.5 fl (7.4-10.4); PLATELET 479 x1000/uL (130-400); RED BLOOD CELL COUNT 3.65 mill/uL (4.7-6.1); RED CELL DISTRIBUTION WIDTH 15.3 % (11.6-14.6)
[2019-05-20] MEDS ORDERED: KETOROLAC 30MG/ML VIAL IV STA (18:01)
[2019-05-20] MEDS ORDERED: MORPHINE SULFATE 4 MG/ML CPJ (NOT FOR IM USE) IV STA (18:01)
[2019-05-20] MEDS ORDERED: SODIUM CHLORIDE 0.9% 1,000 ML IV ONE (18:01)
[2019-05-20 18:11] LABS: PLATELET ESTIMATE INCREASED
[2019-05-20] MEDS ORDERED: PIPERACILLIN/TAZ 3.375G PREMIX 50 ML IV ONE (18:15)
[2019-05-20] MEDS ORDERED: METRONIDAZOLE 500 MG PREMIX 100 ML IV ONE (18:15)
[2019-05-20] MEDS ORDERED: DOCUSATE SODIUM 100MG CAPSULE PO PRN (20:45)
[2019-05-20] MEDS ORDERED: CLONIDINE 0.1MG TABLET PO PRN (20:45)
[2019-05-20] MEDS ORDERED: NITROGLYCERIN 0.4MG TABLET SL SL PRN (20:45)
[2019-05-20] MEDS ORDERED: MORPHINE SULFATE 2 MG/ML CPJ (NOT FOR IM USE) IV PRN (20:45)
[2019-05-20] MEDS ORDERED: TRAMADOL 50MG TABLET PO PRN (20:45)
[2019-05-20] MEDS ORDERED: LEVOFLOXACIN 500MG PREMIX 100 ML IV SCH (20:45)
[2019-05-20] MEDS ORDERED: MAGNESIUM/ALUMINUM HYDROXIDE/SIMETHICONE 30ML UDC PO PRN (20:45)
[2019-05-20] MEDS ORDERED: ONDANSETRON HCL 4MG/2ML INJ IV PRN (20:45)
[2019-05-20] MEDS ORDERED: ACETAMINOPHEN 325MG TABLET PO PRN (20:45)
[2019-05-20] MEDS ORDERED: IPRATROPIUM/ALBUTEROL 0.5-3(2.5)MG/3ML NEB NEB PRN (20:45)
[2019-05-20] MEDS ORDERED: DEXTROSE 50% WATER 50ML SYRINGE IV PRN (20:45)
[2019-05-20] MEDS ORDERED: GUAIFENESIN 200MG/10ML SUGAR FREE UDC PO PRN (20:45)
[2019-05-20] MEDS ORDERED: LORAZEPAM 0.5MG TABLET PO PRN (20:45)
[2019-05-20 21:32] LABS: TOTAL IRON BINDING CAPACITY 219 ug/dL (250-450)
[2019-05-20 21:54] LABS: FOLIC ACID (FOLATE) SERUM 11.3 ng/mL (>5.38)
[2019-05-20 23:08] LABS: CREATINE KINASE 26 IU/L (39-308)
[2019-05-20 23:09] LABS: CREATINE KINASE MB FRACTION < 1.0 ng/mL (0.5-3.6)
[2019-05-21] MEDS ORDERED: METRONIDAZOLE 500 MG PREMIX 100 ML IV NR (04:00)
[2019-05-21] MEDS ORDERED: PIPERACILLIN/TAZ 3.375G PREMIX 50 ML IV NR (04:00)
[2019-05-21] MEDS ORDERED: SODIUM POLYSTYRENE SULFONATE 15 G/60 ML BOT PO NR (06:00)
[2019-05-21] MEDS ORDERED: SODIUM BICARBONATE 8.4% 1 MEQ/ML 50ML SYR IV NR (06:00)
[2019-05-21 06:02] LABS: CREATINE KINASE 18 IU/L (39-308)
[2019-05-21 06:03] LABS: CREATINE KINASE MB FRACTION < 1.0 ng/mL (0.5-3.6)
[2019-05-21] MEDS ORDERED: LEVOFLOXACIN 500MG PREMIX 100 ML IV NR (06:26)
[2019-05-21] MEDS: INSULIN LISPRO 100 UNITS/ML SUBCUT SCH ×4 (08:20→23:36)
[2019-05-21] MEDS: FERROUS SULFATE 300MG/5ML UDC PO SCH ×3 (09:24→17:25)
[2019-05-21] MEDS: TAMSULOSIN HCL 0.4MG SR CAPSULE PO SCH (09:24)
[2019-05-21] MEDS: DUTASTERIDE 0.5MG CAPSULE PO SCH (09:24)
[2019-05-21] MEDS: ZINC SULFATE 220 MG ( 50 ) CAPSULE PO SCH (09:24)
[2019-05-21] MEDS: ASCORBIC ACID 500 MG TABLET PO SCH ×2 (09:24→23:34)
[2019-05-21] MEDS: BLOOD SUGAR DIAGNOSTIC STRIP TEST SCH ×3 (09:24→21:00)
[2019-05-21] MEDS: FAMOTIDINE 20MG TABLET PO SCH ×2 (09:24→23:34)
[2019-05-21] MEDS ORDERED: LEVOFLOXACIN 500MG PREMIX 100 ML IV SCH (10:00)
[2019-05-21] MEDS ORDERED: CEFAZOLIN 1000MG PREMIX 50 ML IV SCH (10:00)
[2019-05-21 11:30] VITALS: BP 133/86
[2019-05-21] MEDS ORDERED: GADOBENATE DIMEGLUMINE 529 MG/ML 10ML IV ONE (13:15)
[2019-05-21] MEDS ORDERED: METRONIDAZOLE 500 MG PREMIX 100 ML IV SCH (14:00)
[2019-05-21] MEDS ORDERED: FINA5TAB11 PO (14:08)
[2019-05-21] MEDS: CEFAZOLIN 1000MG PREMIX 50 ML IV SCH (18:17)
[2019-05-21] MEDS: METRONIDAZOLE 500 MG PREMIX 100 ML IV SCH (19:06)
[2019-05-21 20:00] VITALS: BP 133/61
[2019-05-21] MEDS ORDERED: ZOLPIDEM TARTRATE 5MG TABLET PO PRN (21:00)
[2019-05-22] VITALS (8 sets, daily range): BP systolic 82–152; BP diastolic 41–84
[2019-05-22] MEDS: LEVOFLOXACIN 500MG PREMIX 100 ML IV SCH (06:00)
[2019-05-22] MEDS: BLOOD SUGAR DIAGNOSTIC STRIP TEST SCH ×4 (06:45→21:03)
[2019-05-22] MEDS: METRONIDAZOLE 500 MG PREMIX 100 ML IV SCH ×3 (06:46→17:39)
[2019-05-22] MEDS: CEFAZOLIN 1000MG PREMIX 50 ML IV SCH ×3 (06:46→18:53)
[2019-05-22] MEDS: INSULIN LISPRO 100 UNITS/ML SUBCUT SCH ×4 (06:47→21:00)
[2019-05-22] MEDS: FERROUS SULFATE 300MG/5ML UDC PO SCH ×3 (06:47→16:54)
[2019-05-22] MEDS: ZINC SULFATE 220 MG ( 50 ) CAPSULE PO SCH (08:40)
[2019-05-22] MEDS: FAMOTIDINE 20MG TABLET PO SCH ×2 (08:40→21:20)
[2019-05-22] MEDS: ASCORBIC ACID 500 MG TABLET PO SCH ×2 (08:40→21:20)
[2019-05-22] MEDS: DUTASTERIDE 0.5MG CAPSULE PO SCH (08:40)
[2019-05-22] MEDS: TAMSULOSIN HCL 0.4MG SR CAPSULE PO SCH (08:47)
[2019-05-22] MEDS ORDERED: ALBUMIN HUMAN 12.5GM/50ML (25%) IV NR (14:00)
[2019-05-23] VITALS: BP 140/60
[2019-05-23] MEDS: METRONIDAZOLE 500 MG PREMIX 100 ML IV SCH ×3 (03:14→17:50)
[2019-05-23] MEDS: CEFAZOLIN 1000MG PREMIX 50 ML IV SCH ×2 (03:14→11:13)
[2019-05-23 04:00] VITALS: BP 135/65
[2019-05-23] MEDS: INSULIN LISPRO 100 UNITS/ML SUBCUT SCH ×4 (06:28→20:46)
[2019-05-23] MEDS: BLOOD SUGAR DIAGNOSTIC STRIP TEST SCH ×4 (06:28→20:45)
[2019-05-23] MEDS: LEVOFLOXACIN 500MG PREMIX 100 ML IV SCH (06:33)
[2019-05-23 06:47] LABS: BASOPHILS % 1.2 % (0.0-2.0); EOSINOPHILS % 1.2 % (0.0-5.0); HEMATOCRIT. 25.8 % (42.0-52.0); HEMOGLOBIN. 8.8 g/dL (14.0-18.0); LYMPHOCYTES % 17.3 % (20.0-50.0); MEAN CORPUSCULAR HEMOGLOBIN 28.7 pg (28.0-32.0); MEAN CORPUSCULAR VOLUME 84.5 fL (80.0-94.0); MEAN PLATELET VOLUME 7.9 fl (7.4-10.4); MONOCYTES % 8.8 % (2.0-8.0); NEUTROPHILS % 71.5 % (40.0-76.0); PLATELET 472 x1000/uL (130-400); RED BLOOD CELL COUNT 3.05 mill/uL (4.7-6.1); RED CELL DISTRIBUTION WIDTH 14.6 % (11.6-14.6)
[2019-05-23 07:10] LABS: CHLORIDE 109 mEq/L (98-107)
[2019-05-23 08:00] VITALS: BP 93/44
[2019-05-23] MEDS: ZINC SULFATE 220 MG ( 50 ) CAPSULE PO SCH (09:00)
[2019-05-23] MEDS: TAMSULOSIN HCL 0.4MG SR CAPSULE PO SCH ×2 (09:00→17:50)
[2019-05-23] MEDS: FAMOTIDINE 20MG TABLET PO SCH ×2 (09:03→20:49)
[2019-05-23] MEDS: FERROUS SULFATE 300MG/5ML UDC PO SCH ×3 (09:04→17:59)
[2019-05-23] MEDS: ASCORBIC ACID 500 MG TABLET PO SCH ×2 (09:04→20:49)
[2019-05-23] MEDS: DUTASTERIDE 0.5MG CAPSULE PO SCH (09:05)
[2019-05-23 12:00] VITALS: BP 138/77
[2019-05-23 16:00] VITALS: BP 131/71
[2019-05-23 20:00] VITALS: BP 94/55
[2019-05-24] VITALS: BP 126/61
[2019-05-24 04:00] VITALS: BP 142/74
[2019-05-24] MEDS: BLOOD SUGAR DIAGNOSTIC STRIP TEST SCH ×2 (05:52→12:31)
[2019-05-24] MEDS ORDERED: METRONIDAZOLE 500MG TABLET PO SCH (06:00)
[2019-05-24] MEDS: INSULIN LISPRO 100 UNITS/ML SUBCUT SCH ×2 (06:42→12:41)
[2019-05-24 07:47] VITALS: BP 113/72
[2019-05-24] MEDS: ZINC SULFATE 220 MG ( 50 ) CAPSULE PO SCH (08:31)
[2019-05-24] MEDS: DUTASTERIDE 0.5MG CAPSULE PO SCH (08:31)
[2019-05-24] MEDS: FAMOTIDINE 20MG TABLET PO SCH (08:31)
[2019-05-24] MEDS: FERROUS SULFATE 300MG/5ML UDC PO SCH ×2 (08:32→12:39)
[2019-05-24] MEDS: ASCORBIC ACID 500 MG TABLET PO SCH (08:38)
[2019-05-24] MEDS ORDERED: LEVOFLOXACIN 500MG TABLET PO SCH (11:00)
[2019-05-24 12:00] VITALS: BP 141/51
[2019-05-24 12:11] VITALS: BP 141/51
== END 2019-05-24 13:45 | DRG 871 ==
LOC: ER 16:09 → EDBEDREQTM 19:54 → EDBEDREQ 19:54 → 5WST 20:22 → EDBEDREQTM 20:25 → EDBEDREQ 20:25 → SUPCPDRO 20:32 → ENRESERV 05-21 10:57
PROVIDERS: ADMIT Internal Medicine; ATTEND Internal Medicine
DX: A41.9 Sepsis, unspecified organism (principal); E43 Unspecified severe protein-calorie malnutrition; N13.6 Pyonephrosis; D62 Acute posthemorrhagic anemia; E87.1 Hypo-osmolality and hyponatremia; G82.20 Paraplegia, unspecified; K92.1 Melena; D63.8 Anemia in other chronic diseases classified elsewhere; E87.5 Hyperkalemia; I10 Essential (primary) hypertension; R74.0 Nonspecific elevation of levels of transaminase and lactic acid dehydrogenase [LDH]; E11.9 Type 2 diabetes mellitus without complications; Z79.4 Long term (current) use of insulin; Z68.32 Body mass index [BMI] 32.0-32.9, adult
CPT/HCPCS: 36415; 72158; 74022; 74176; 80048; 80053; 82550; 82553; 82607; 82746; 82962; 83036; 83540; 83550; 83605; 83880; 84484; 85025; 93005; 93970; 97162; 99285; A9577; J0690; J1815; J1956; J2270; J2405; J2543; J3490; J7030; P9047

== ENCOUNTER 2021-10-10 08:42 | Inpatient (IN) | payer MEDICARE, MEDICAID ==
[~2021-10-10] VITALS: Ht 172.7 cm; Wt 77.1 kg
[2021-10-10] VITALS (26 sets, daily range): BP systolic 58–186; BP diastolic 44–140
[~2021-10-10 08:42] MED LIST: FINA5TAB11 PO
[2021-10-10] MEDS ORDERED: LASIX (08:43)
[2021-10-10] MEDS ORDERED: SUCCINYLCHOLINE CHLORIDE 200MG/10ML IV ONE (09:16)
[2021-10-10] MEDS ORDERED: CEFTRIAXONE 1 G PREMIX 50 ML IV ONE (09:45)
[2021-10-10] MEDS ORDERED: LEVOFLOXACIN 500MG PREMIX 100 ML IV ONE (09:45)
[2021-10-10] MEDS ORDERED: SODIUM CHLORIDE 0.9% 1000ML BAG (SEPSIS BOLUS) IV ONE (09:45)
[2021-10-10] MEDS ORDERED: LIDOCAINE HCL 2% 5ML SYRINGE IV ONE (10:30)
[2021-10-10] MEDS ORDERED: KETAMINE HCL 50 MG/ML 10ML IV ONE (10:30)
[2021-10-10] MEDS ORDERED: NOREPINEPHRINE 8MG/250ML PMX 250 ML IV ONE (10:46)
[2021-10-10 11:02] LABS: CLARITY URINE TURBID (CLEAR); COLOR URINE YELLOW (YELLOW); KETONES URINE NEGATIVE (NEGATIVE); LEUKOCYTE ESTERASE URINE 3+ (NEGATIVE); NITRITE URINE NEGATIVE (NEGATIVE); OCCULT BLOOD URINE 2+ (NEGATIVE); PROTEIN URINE 2+ (NEGATIVE); SPECIFIC GRAVITY URINE 1.004 (1.005-1.030); UROBILINOGEN URINE 0.2 E.U./dL (0.2-1.0)
[2021-10-10 11:06] LABS: CHLORIDE 111 mEq/L (98-107)
[2021-10-10 11:13] LABS: BASOPHILS % 0.1 % (0.0-2.0); EOSINOPHILS % 0.2 % (0.0-5.0); HEMATOCRIT. 22.4 % (42.0-52.0); HEMOGLOBIN. 7.2 g/dL (14.0-18.0); LYMPHOCYTES % 8.6 % (20.0-50.0); MEAN CORPUSCULAR HEMOGLOBIN 28.1 pg (28.0-32.0); MEAN CORPUSCULAR VOLUME 87.5 fL (80.0-94.0); MEAN PLATELET VOLUME 8.1 fl (7.4-10.4); MONOCYTES % 6.2 % (2.0-8.0); NEUTROPHILS % 84.9 % (40.0-76.0); PLATELET 286 x1000/uL (130-400); RED BLOOD CELL COUNT 2.56 mill/uL (4.7-6.1); RED CELL DISTRIBUTION WIDTH 15.1 % (11.6-14.6)
[2021-10-10] MEDS ORDERED: PROPOFOL 10MG/ML 100ML 100 ML IV SCH (11:15)
[2021-10-10] MEDS ORDERED: CEFTRIAXONE 1 G PREMIX 50 ML IV NR (12:15)
[2021-10-10] MEDS ORDERED: IOHEXOL-300 100 ML BOTTLE ONE (16:04)
[2021-10-10 16:13] LABS: BG BASE EXCESS -9.7 mmol/L (-2.0-2.0); BG CARBOXYHEMOGLOBIN 0.3 % (0.5-1.5); BG DEOXYHEMOGLOBIN 0.4 % (0.0-5.0); BG FRACTION INSPIRED OXYGEN 70; BG HCO3 ACT 14.6 mmol/L (22.0-26.0); BG METHEMOGLOBIN 0.3 % (0.0-1.5); BG OXYGEN SATURATION 99.6 % (92.0-98.5); BG PCO2 26.7 mmHg (35.0-45.0); BG PH 7.356 (7.350-7.450); BG SAMPLE SITE RIGHT BRACHIAL; BG TOTAL HEMOGLOBIN 8.9 g/dL (12.0-18.0); BG VENT MODE VENT - AC
[2021-10-10] MEDS ORDERED: LIDOCAINE HCL 1% 20ML VIAL (Pyxis) INJ INFIL ONE (16:15)
[2021-10-10] MEDS: DEXT 5%/0.45% NACL 1000ML 1,000 ML IV SCH (18:45)
[2021-10-10] MEDS ORDERED: GUAIFENESIN 200MG/10ML SUGAR FREE UDC PO PRN (18:45)
[2021-10-10] MEDS ORDERED: MAGNESIUM/ALUMINUM HYDROXIDE/SIMETHICONE 30ML UDC PO PRN (18:45)
[2021-10-10] MEDS ORDERED: ACETAMINOPHEN 325MG TABLET PO PRN (18:45)
[2021-10-10] MEDS ORDERED: CLONIDINE 0.1MG TABLET PO PRN (18:45)
[2021-10-10] MEDS ORDERED: NALOXONE HCL 0.4MG/ML VIAL IV PRN (19:00)
[2021-10-10] MEDS ORDERED: NOREPINEPHRINE 8MG/250ML PMX 250 ML IV PRN (20:45)
[2021-10-10] MEDS ORDERED: PROPOFOL 10MG/ML 100ML 100 ML IV PRN (20:45)
[2021-10-10] MEDS: HYDROCODONE/ACETAMINOPHEN 5/325MG TABLET PO PRN (21:04)
[2021-10-10] MEDS: PROPOFOL 10MG/ML 100ML 100 ML IV PRN (22:46)
[2021-10-10] MEDS: NOREPINEPHRINE 8 MG in DEXTROSE 5% WATER 250 ML IV PRN (23:06)
[2021-10-11] VITALS (107 sets, daily range): BP systolic 55–175; BP diastolic 37–124
[2021-10-11] MEDS: HYDROCODONE/ACETAMINOPHEN 5/325MG TABLET PO PRN ×2 (01:40→06:59)
[2021-10-11] MEDS: PROPOFOL 10MG/ML 100ML 100 ML IV PRN ×2 (04:52→14:26)
[2021-10-11 06:17] LABS: HEMOGLOBIN. 10.7 g/dL (14.0-18.0); MEAN CORPUSCULAR HEMOGLOBIN 28.2 pg (28.0-32.0); MEAN CORPUSCULAR VOLUME 86.6 fL (80.0-94.0); PLATELET 395 x1000/uL (130-400); RED BLOOD CELL COUNT 3.81 mill/uL (4.7-6.1); RED CELL DISTRIBUTION WIDTH 15.2 % (11.6-14.6)
[2021-10-11 06:21] LABS: CHLORIDE 111 mEq/L (98-107)
[2021-10-11 06:29] LABS: PHOSPHORUS 4.4 mg/dL (2.5-4.9)
[2021-10-11] MEDS: CEFTRIAXONE 1,000 MG in DEXTROSE 5% WATER 50 ML IV SCH (11:30)
[2021-10-11] MEDS: FENTANYL 2500MCG/250ML PMX 250 ML IV PRN (11:31)
[2021-10-11] MEDS ORDERED: [UNRECOGNIZED DRUG - CODE] MT (11:47)
[2021-10-11] MEDS ORDERED: FERR325T6 MT (11:47)
[2021-10-11] MEDS ORDERED: CHOL400D7 PO (11:47)
[2021-10-11] MEDS ORDERED: FLUD0.1T MT (11:47)
[2021-10-11] MEDS ORDERED: ASCO500C18 MT (11:47)
[2021-10-11] MEDS ORDERED: CEFTRIAXONE 1 G PREMIX 50 ML IV SCH (12:00)
[2021-10-11 13:56] LABS: PLATELET ESTIMATE NORMAL
[2021-10-11] MEDS: DEXT 5%/0.45% NACL 1000ML 1,000 ML IV SCH (14:22)
[2021-10-11 14:36] LABS: BG BASE EXCESS -7.8 mmol/L (-2.0-2.0); BG CARBOXYHEMOGLOBIN 0.1 % (0.5-1.5); BG DEOXYHEMOGLOBIN 4.4 % (0.0-5.0); BG FRACTION INSPIRED OXYGEN 30; BG HCO3 ACT 17.3 mmol/L (22.0-26.0); BG METHEMOGLOBIN 0.1 % (0.0-1.5); BG OXYGEN SATURATION 95.6 % (92.0-98.5); BG OXYHEMOGLOBIN 95.4 % (94.0-97.0); BG PCO2 34.1 mmHg (35.0-45.0); BG PH 7.324 (7.350-7.450); BG PO2 83.6 mmHg (75.0-100.0); BG SAMPLE SITE RIGHT BRACHIAL; BG TOTAL HEMOGLOBIN 11.4 g/dL (12.0-18.0); BG VENT MODE VENT - AC
[2021-10-11] MEDS: PANTOPRAZOLE SODIUM 40 MG/VIAL IV SCH (17:56)
[2021-10-11] MEDS: PHENYLEPHRINE 100 MG in DEXT 5% WATER 240 ML IV PRN (19:28)
[2021-10-11] MEDS: NOREPINEPHRINE 8 MG in DEXTROSE 5% WATER 250 ML IV PRN (19:29)
[2021-10-11] MEDS ORDERED: DIGOXIN 500MCG/2ML AMP IV NR (20:00)
[2021-10-12] VITALS (69 sets, daily range): BP systolic 60–185; BP diastolic 21–118
[2021-10-12 05:48] LABS: HEMATOCRIT 30.5 % (42.0-52.0); HEMOGLOBIN 9.8 g/dL (14.0-18.0); MEAN CORPUSCULAR HEMOGLOBIN 28.5 pg (28.0-32.0); MEAN CORPUSCULAR VOLUME 88.7 fL (80.0-94.0); PLATELET 328 x1000/uL (130-400); RED BLOOD CELL COUNT 3.44 mill/uL (4.7-6.1); RED CELL DISTRIBUTION WIDTH 15.7 % (11.6-14.6)
[2021-10-12] MEDS: PANTOPRAZOLE SODIUM 40 MG/VIAL IV SCH (09:00)
[2021-10-12] MEDS: DEXT 5%/0.45% NACL 1000ML 1,000 ML IV SCH (10:45)
[2021-10-12] MEDS: CEFTRIAXONE 1,000 MG in DEXTROSE 5% WATER 50 ML IV SCH (12:00)
[2021-10-12] MEDS ORDERED: IPRATROPIUM/ALBUTEROL 0.5-3(2.5)MG/3ML NEB HHN PRN (13:00)
[2021-10-12] MEDS: IPRATROPIUM/ALBUTEROL 0.5-3(2.5)MG/3ML NEB HHN SCH ×2 (13:37→20:23)
[2021-10-12] MEDS: PHENYLEPHRINE 100 MG in DEXT 5% WATER 240 ML IV PRN (19:41)
[2021-10-12] MEDS: FENTANYL 2500MCG/250ML PMX 250 ML IV PRN (19:44)
[2021-10-13] VITALS (90 sets, daily range): BP systolic 45–159; BP diastolic 27–121
[2021-10-13] MEDS: ENOXAPARIN 40MG/0.4ML SYR SUBCUT SCH ×2 (00:26→23:54)
[2021-10-13] MEDS: IPRATROPIUM/ALBUTEROL 0.5-3(2.5)MG/3ML NEB HHN SCH ×4 (01:17→20:58)
[2021-10-13 06:13] LABS: HEMATOCRIT. 30.6 % (42.0-52.0); HEMOGLOBIN. 9.6 g/dL (14.0-18.0); MEAN CORPUSCULAR HEMOGLOBIN 28.8 pg (28.0-32.0); MEAN CORPUSCULAR VOLUME 91.4 fL (80.0-94.0); MEAN PLATELET VOLUME 8.4 fl (7.4-10.4); PLATELET 108 x1000/uL (130-400); RED BLOOD CELL COUNT 3.35 mill/uL (4.7-6.1); RED CELL DISTRIBUTION WIDTH 15.5 % (11.6-14.6)
[2021-10-13 06:44] LABS: CHLORIDE 110 mEq/L (98-107)
[2021-10-13] MEDS: PHENYLEPHRINE 100 MG in DEXT 5% WATER 240 ML IV PRN (06:47)
[2021-10-13] MEDS: DEXT 5%/0.45% NACL 1000ML 1,000 ML IV SCH (06:58)
[2021-10-13 07:00] LABS: PHOSPHORUS 3.1 mg/dL (2.5-4.9)
[2021-10-13 09:00] LABS: BG BASE EXCESS -7.2 mmol/L (-2.0-2.0); BG CARBOXYHEMOGLOBIN 0.1 % (0.5-1.5); BG DEOXYHEMOGLOBIN 3.2 % (0.0-5.0); BG FRACTION INSPIRED OXYGEN 30; BG HCO3 ACT 18.2 mmol/L (22.0-26.0); BG METHEMOGLOBIN 0.4 % (0.0-1.5); BG OXYGEN SATURATION 96.8 % (92.0-98.5); BG OXYHEMOGLOBIN 96.3 % (94.0-97.0); BG PCO2 35.8 mmHg (35.0-45.0); BG PH 7.323 (7.350-7.450); BG PO2 94.1 mmHg (75.0-100.0); BG SAMPLE SITE LEFT BRACHIAL; BG TOTAL HEMOGLOBIN 10.8 g/dL (12.0-18.0); BG VENT MODE VENT - AC
[2021-10-13] MEDS: PANTOPRAZOLE SODIUM 40 MG/VIAL IV SCH (09:56)
[2021-10-13] MEDS: HYDROCODONE/ACETAMINOPHEN 5/325MG TABLET PO PRN (10:15)
[2021-10-13 12:13] LABS: PLATELET ESTIMATE DECREASED
[2021-10-13] MEDS: CEFTRIAXONE 1,000 MG in DEXTROSE 5% WATER 50 ML IV SCH (12:31)
[2021-10-13 14:17] LABS: BG BASE EXCESS -5.6 mmol/L (-2.0-2.0); BG CARBOXYHEMOGLOBIN 0.3 % (0.5-1.5); BG DEOXYHEMOGLOBIN 1.6 % (0.0-5.0); BG FRACTION INSPIRED OXYGEN 30; BG HCO3 ACT 19.7 mmol/L (22.0-26.0); BG METHEMOGLOBIN 0.3 % (0.0-1.5); BG OXYGEN SATURATION 98.4 % (92.0-98.5); BG OXYHEMOGLOBIN 97.8 % (94.0-97.0); BG PCO2 37.8 mmHg (35.0-45.0); BG PH 7.335 (7.350-7.450); BG PO2 133.2 mmHg (75.0-100.0); BG SAMPLE SITE LEFT BRACHIAL; BG TOTAL HEMOGLOBIN 11.1 g/dL (12.0-18.0); BG VENT MODE VENT - CPAP
[2021-10-13 16:49] LABS: BASOPHILS % 0.4 % (0.0-2.0); EOSINOPHILS % 0.6 % (0.0-5.0); HEMATOCRIT. 30.1 % (42.0-52.0); HEMOGLOBIN. 9.8 g/dL (14.0-18.0); LYMPHOCYTES % 13.9 % (20.0-50.0); MEAN CORPUSCULAR HEMOGLOBIN 28.2 pg (28.0-32.0); MEAN CORPUSCULAR VOLUME 87.1 fL (80.0-94.0); MEAN PLATELET VOLUME 7.6 fl (7.4-10.4); MONOCYTES % 6.3 % (2.0-8.0); NEUTROPHILS % 78.8 % (40.0-76.0); PLATELET 313 x1000/uL (130-400); RED BLOOD CELL COUNT 3.46 mill/uL (4.7-6.1)
[2021-10-13 17:01] LABS: D-DIMER 2.18 mg/L FEU (<0.50); INR 1.1; PARTIAL THROMBOPLASTIN TIME 36.2 sec (23.4-31.0); PROTHROMBIN TIME 11.8 sec (9.6-11.0)
[2021-10-13] MEDS ORDERED: COLISTIMETHATE SODIUM 300 MG in SODIUM CHLORIDE 0.9% 100 ML IV NR (23:00)
[2021-10-13] MEDS ORDERED: DILTIAZEM HCL 5MG/ML 5ML VIAL IV NR (23:15)
[2021-10-14] VITALS (93 sets, daily range): BP systolic 94–167; BP diastolic 43–116
[2021-10-14] MEDS: PHENYLEPHRINE 100 MG in DEXT 5% WATER 240 ML IV PRN ×2 (00:55→19:35)
[2021-10-14] MEDS: DEXT 5%/0.45% NACL 1000ML 1,000 ML IV SCH ×2 (00:55→22:36)
[2021-10-14] MEDS: IPRATROPIUM/ALBUTEROL 0.5-3(2.5)MG/3ML NEB HHN SCH ×4 (01:16→20:35)
[2021-10-14 05:33] LABS: BASOPHILS % 0.7 % (0.0-2.0); EOSINOPHILS % 1.5 % (0.0-5.0); HEMATOCRIT. 31.8 % (42.0-52.0); HEMOGLOBIN. 10.1 g/dL (14.0-18.0); LYMPHOCYTES % 16.2 % (20.0-50.0); MEAN CORPUSCULAR VOLUME 87.8 fL (80.0-94.0); MEAN PLATELET VOLUME 7.6 fl (7.4-10.4); MONOCYTES % 7.2 % (2.0-8.0); NEUTROPHILS % 74.4 % (40.0-76.0); PLATELET 324 x1000/uL (130-400); RED BLOOD CELL COUNT 3.62 mill/uL (4.7-6.1); RED CELL DISTRIBUTION WIDTH 14.9 % (11.6-14.6)
[2021-10-14 05:57] LABS: CHLORIDE 112 mEq/L (98-107)
[2021-10-14 06:06] LABS: PHOSPHORUS 3.1 mg/dL (2.5-4.9)
[2021-10-14] MEDS: PANTOPRAZOLE SODIUM 40 MG/VIAL IV SCH (08:31)
[2021-10-14] MEDS ORDERED: MAGNESIUM 2 G PREMIX 50 ML IV SCH (08:45)
[2021-10-14] MEDS ORDERED: POTASSIUM CHLORIDE 20MEQ TABLET SR PO SCH (08:45)
[2021-10-14] MEDS ORDERED: LIDOCAINE HCL/EPINEPHRINE 1%-EPI 1:100,000 10 ML VIAL INFIL ONE (12:15)
[2021-10-14] MEDS ORDERED: LIDOCAINE HCL/EPINEPHRINE 1%-EPI 1:100,000 50 ML VIAL INFIL ONE (12:15)
[2021-10-14] MEDS: COLISTIMETHATE 150MG in SODIUM CHLORIDE 0.9% 100ML IV SCH (12:27)
[2021-10-14] MEDS: MIDODRINE HCL 5MG TABLET PO SCH ×2 (13:00→16:56)
[2021-10-14] MEDS: CEFTRIAXONE 1,000 MG in DEXTROSE 5% WATER 50 ML IV SCH (13:06)
[2021-10-14] MEDS: ENOXAPARIN 40MG/0.4ML SYR SUBCUT SCH (22:35)
[2021-10-15] VITALS (95 sets, daily range): BP systolic 76–145; BP diastolic 29–86
[2021-10-15] MEDS: COLISTIMETHATE 150MG in SODIUM CHLORIDE 0.9% 100ML IV SCH ×2 (01:13→12:16)
[2021-10-15] MEDS: IPRATROPIUM/ALBUTEROL 0.5-3(2.5)MG/3ML NEB HHN SCH ×4 (02:20→20:11)
[2021-10-15 05:34] LABS: CHLORIDE 111 mEq/L (98-107)
[2021-10-15 05:38] LABS: PHOSPHORUS 2.9 mg/dL (2.5-4.9)
[2021-10-15 05:45] LABS: BASOPHILS % 0.6 % (0.0-2.0); EOSINOPHILS % 3.3 % (0.0-5.0); HEMATOCRIT. 26.8 % (42.0-52.0); HEMOGLOBIN. 8.8 g/dL (14.0-18.0); LYMPHOCYTES % 21.4 % (20.0-50.0); MEAN CORPUSCULAR VOLUME 88.6 fL (80.0-94.0); MEAN PLATELET VOLUME 7.8 fl (7.4-10.4); MONOCYTES % 8.7 % (2.0-8.0); PLATELET 274 x1000/uL (130-400); RED BLOOD CELL COUNT 3.03 mill/uL (4.7-6.1); RED CELL DISTRIBUTION WIDTH 14.9 % (11.6-14.6)
[2021-10-15] MEDS: PANTOPRAZOLE SODIUM 40 MG/VIAL IV SCH (08:50)
[2021-10-15] MEDS: MIDODRINE HCL 5MG TABLET PO SCH ×2 (08:50→16:14)
[2021-10-15] MEDS: CEFTRIAXONE 1,000 MG in DEXTROSE 5% WATER 50 ML IV SCH (12:16)
[2021-10-15] MEDS: DEXT 5%/0.45% NACL 1000ML 1,000 ML IV SCH (18:24)
[2021-10-16] VITALS (97 sets, daily range): BP systolic 77–168; BP diastolic 41–114
[2021-10-16] MEDS: ENOXAPARIN 40MG/0.4ML SYR SUBCUT SCH (00:17)
[2021-10-16] MEDS: COLISTIMETHATE 150MG in SODIUM CHLORIDE 0.9% 100ML IV SCH ×3 (00:17→23:57)
[2021-10-16] MEDS: MIDODRINE HCL 5MG TABLET PO SCH ×3 (01:40→17:12)
[2021-10-16] MEDS: IPRATROPIUM/ALBUTEROL 0.5-3(2.5)MG/3ML NEB HHN SCH ×4 (01:58→21:04)
[2021-10-16 05:47] LABS: BASOPHILS % 0.5 % (0.0-2.0); EOSINOPHILS % 3.4 % (0.0-5.0); HEMATOCRIT. 25.8 % (42.0-52.0); HEMOGLOBIN. 8.5 g/dL (14.0-18.0); LYMPHOCYTES % 18.5 % (20.0-50.0); MEAN CORPUSCULAR HEMOGLOBIN 28.8 pg (28.0-32.0); MEAN CORPUSCULAR VOLUME 87.9 fL (80.0-94.0); MEAN PLATELET VOLUME 7.9 fl (7.4-10.4); MONOCYTES % 10.6 % (2.0-8.0); PLATELET 251 x1000/uL (130-400); RED BLOOD CELL COUNT 2.94 mill/uL (4.7-6.1); RED CELL DISTRIBUTION WIDTH 15.2 % (11.6-14.6)
[2021-10-16] MEDS: POTASSIUM CHLORIDE 20MEQ TABLET SR PO SCH (09:19)
[2021-10-16] MEDS: PANTOPRAZOLE SODIUM 40 MG/VIAL IV SCH (09:19)
[2021-10-16] MEDS: DEXT 5%/0.45% NACL 1000ML 1,000 ML IV SCH (13:48)
[2021-10-16] MEDS: CEFTRIAXONE 1,000 MG in DEXTROSE 5% WATER 50 ML IV SCH (13:48)
[2021-10-16] MEDS ORDERED: AMIODARONE HCL 150 MG in DEXT 5% WATER 100 ML IV NR (16:30)
[2021-10-16] MEDS ORDERED: AMIODARONE HCL 900 MG in DEXT 5% WATER 482 ML IV PRN (16:30)
[2021-10-16] MEDS ORDERED: AMIODARONE HCL 900 MG in DEXT 5% WATER 482 ML IV SCH (18:00)
[2021-10-17] VITALS (113 sets, daily range): BP systolic 50–199; BP diastolic 31–128
[2021-10-17] MEDS: ENOXAPARIN 40MG/0.4ML SYR SUBCUT SCH
[2021-10-17] MEDS: MIDODRINE HCL 5MG TABLET PO SCH ×3 (00:01→15:58)
[2021-10-17] MEDS: IPRATROPIUM/ALBUTEROL 0.5-3(2.5)MG/3ML NEB HHN SCH ×4 (02:56→21:44)
[2021-10-17 07:37] LABS: BASOPHILS % 0.4 % (0.0-2.0); EOSINOPHILS % 2.3 % (0.0-5.0); HEMATOCRIT. 28.5 % (42.0-52.0); HEMOGLOBIN. 9.1 g/dL (14.0-18.0); LYMPHOCYTES % 17.7 % (20.0-50.0); MEAN CORPUSCULAR HEMOGLOBIN 29.2 pg (28.0-32.0); MEAN CORPUSCULAR VOLUME 91.2 fL (80.0-94.0); MEAN PLATELET VOLUME 8.2 fl (7.4-10.4); MONOCYTES % 12.1 % (2.0-8.0); NEUTROPHILS % 67.5 % (40.0-76.0); PLATELET 215 x1000/uL (130-400); RED BLOOD CELL COUNT 3.12 mill/uL (4.7-6.1); RED CELL DISTRIBUTION WIDTH 15.1 % (11.6-14.6)
[2021-10-17 08:02] LABS: PHOSPHORUS 3.2 mg/dL (2.5-4.9)
[2021-10-17] MEDS: PANTOPRAZOLE SODIUM 40 MG/VIAL IV SCH (09:06)
[2021-10-17] MEDS: POTASSIUM CHLORIDE 20MEQ TABLET SR PO SCH (09:07)
[2021-10-17] MEDS: ACETAMINOPHEN 325MG TABLET PO PRN ×2 (09:08→17:59)
[2021-10-17] MEDS: PHENYLEPHRINE 100 MG in DEXT 5% WATER 240 ML IV PRN (09:12)
[2021-10-17] MEDS: DEXT 5%/0.45% NACL 1000ML 1,000 ML IV SCH (10:21)
[2021-10-17] MEDS: COLISTIMETHATE 150MG in SODIUM CHLORIDE 0.9% 100ML IV SCH (12:49)
[2021-10-17] MEDS: ONDANSETRON HCL 4MG/2ML INJ IV PRN (14:01)
[2021-10-17] MEDS ORDERED: FUROSEMIDE 40MG/4ML VIAL IVP NR (20:34)
[2021-10-17 20:43] LABS: BG BASE EXCESS -12.3 mmol/L (-2.0-2.0); BG CARBOXYHEMOGLOBIN 0.3 % (0.5-1.5); BG DEOXYHEMOGLOBIN 0.7 % (0.0-5.0); BG FRACTION INSPIRED OXYGEN 100; BG HCO3 ACT 20.4 mmol/L (22.0-26.0); BG METHEMOGLOBIN 0.5 % (0.0-1.5); BG OXYGEN SATURATION 99.3 % (92.0-98.5); BG OXYHEMOGLOBIN 98.5 % (94.0-97.0); BG PCO2 95.4 mmHg (35.0-45.0); BG PH 6.948 (7.350-7.450); BG PO2 337.8 mmHg (75.0-100.0); BG SAMPLE SITE RIGHT RADIAL; BG VENT MODE MASK - NRB
[2021-10-17] MEDS ORDERED: SODIUM BICARBONATE 8.4% 1 MEQ/ML 50ML SYR IV NR (21:09)
[2021-10-18] VITALS (105 sets, daily range): BP systolic 55–185; BP diastolic 36–118
[2021-10-18] MEDS: MIDODRINE HCL 5MG TABLET PO SCH ×4 (00:30→23:31)
[2021-10-18] MEDS: ENOXAPARIN 40MG/0.4ML SYR SUBCUT SCH (01:39)
[2021-10-18 01:58] LABS: BG BASE EXCESS -1.9 mmol/L (-2.0-2.0); BG CARBOXYHEMOGLOBIN 0.3 % (0.5-1.5); BG DEOXYHEMOGLOBIN 0.6 % (0.0-5.0); BG FRACTION INSPIRED OXYGEN 70; BG HCO3 ACT 21.8 mmol/L (22.0-26.0); BG METHEMOGLOBIN 0.3 % (0.0-1.5); BG OXYGEN SATURATION 99.4 % (92.0-98.5); BG OXYHEMOGLOBIN 98.8 % (94.0-97.0); BG PCO2 33.3 mmHg (35.0-45.0); BG PH 7.434 (7.350-7.450); BG PO2 359.6 mmHg (75.0-100.0); BG SAMPLE SITE LEFT BRACHIAL; BG TOTAL RESPIRATORY RATE 20 b/min
[2021-10-18] MEDS ORDERED: LIDOCAINE HCL/PF 1% 2ML VIAL ONE (05:00)
[2021-10-18 06:02] LABS: BASOPHILS % 0.3 % (0.0-2.0); EOSINOPHILS % 1.9 % (0.0-5.0); HEMATOCRIT. 29.5 % (42.0-52.0); HEMOGLOBIN. 9.6 g/dL (14.0-18.0); LYMPHOCYTES % 16.7 % (20.0-50.0); MEAN CORPUSCULAR HEMOGLOBIN 28.6 pg (28.0-32.0); MEAN PLATELET VOLUME 8.3 fl (7.4-10.4); MONOCYTES % 10.7 % (2.0-8.0); NEUTROPHILS % 70.4 % (40.0-76.0); PLATELET 256 x1000/uL (130-400); RED BLOOD CELL COUNT 3.36 mill/uL (4.7-6.1); RED CELL DISTRIBUTION WIDTH 15.1 % (11.6-14.6)
[2021-10-18] MEDS: PHENYLEPHRINE 100 MG in DEXT 5% WATER 240 ML IV PRN (06:50)
[2021-10-18] MEDS: DEXT 5%/0.45% NACL 1000ML 1,000 ML IV SCH (07:19)
[2021-10-18] MEDS: IPRATROPIUM/ALBUTEROL 0.5-3(2.5)MG/3ML NEB HHN SCH ×4 (09:13→19:58)
[2021-10-18] MEDS ORDERED: DOPAMINE 400MG/250ML PREMIX 250 ML IV PRN (09:15)
[2021-10-18 09:38] LABS: BG BASE EXCESS -3.6 mmol/L (-2.0-2.0); BG CARBOXYHEMOGLOBIN 0.3 % (0.5-1.5); BG DEOXYHEMOGLOBIN 1.2 % (0.0-5.0); BG FRACTION INSPIRED OXYGEN 40; BG HCO3 ACT 20.7 mmol/L (22.0-26.0); BG METHEMOGLOBIN 0.5 % (0.0-1.5); BG OXYGEN SATURATION 98.8 % (92.0-98.5); BG PCO2 34.3 mmHg (35.0-45.0); BG PH 7.398 (7.350-7.450); BG PO2 170.3 mmHg (75.0-100.0); BG SAMPLE SITE RIGHT RADIAL; BG TOTAL HEMOGLOBIN 10.3 g/dL (12.0-18.0); BG TOTAL RESPIRATORY RATE 20 b/min; BG VENT MODE MASK - BIPAP
[2021-10-18] MEDS: POTASSIUM CHLORIDE 20MEQ TABLET SR PO SCH (09:39)
[2021-10-18] MEDS: PANTOPRAZOLE SODIUM 40 MG/VIAL IV SCH (09:39)
[2021-10-18] MEDS: COLISTIMETHATE 150MG in SODIUM CHLORIDE 0.9% 100ML IV SCH (11:37)
[2021-10-18] MEDS: ENOXAPARIN 30MG/0.3ML SYR SUBCUT SCH (22:34)
[2021-10-19] VITALS (71 sets, daily range): BP systolic 60–160; BP diastolic 38–97
[2021-10-19] MEDS: SODIUM CHLORIDE 0.9% 1,000 ML IV SCH ×3 (03:09→19:45)
[2021-10-19] MEDS: IPRATROPIUM/ALBUTEROL 0.5-3(2.5)MG/3ML NEB HHN SCH ×4 (07:43→20:00)
[2021-10-19] MEDS: MIDODRINE HCL 5MG TABLET PO SCH ×3 (10:12→23:58)
[2021-10-19] MEDS: PANTOPRAZOLE SODIUM 40 MG/VIAL IV SCH (10:12)
[2021-10-19] MEDS: POTASSIUM CHLORIDE 20MEQ TABLET SR PO SCH (10:13)
[2021-10-19] MEDS: COLISTIMETHATE 150MG in SODIUM CHLORIDE 0.9% 100ML IV SCH (12:00)
[2021-10-19 12:25] LABS: BASOPHILS % 0.3 % (0.0-2.0); EOSINOPHILS % 3.2 % (0.0-5.0); HEMATOCRIT. 29.8 % (42.0-52.0); HEMOGLOBIN. 9.7 g/dL (14.0-18.0); LYMPHOCYTES % 22.1 % (20.0-50.0); MEAN CORPUSCULAR HEMOGLOBIN 28.6 pg (28.0-32.0); MEAN CORPUSCULAR VOLUME 87.3 fL (80.0-94.0); MEAN PLATELET VOLUME 8.1 fl (7.4-10.4); NEUTROPHILS % 64.4 % (40.0-76.0); PLATELET 274 x1000/uL (130-400); RED BLOOD CELL COUNT 3.41 mill/uL (4.7-6.1); RED CELL DISTRIBUTION WIDTH 15.5 % (11.6-14.6)
[2021-10-19] MEDS: NYSTATIN 100,000 UNITS/ML 5ML UDC SSW SCH ×3 (13:00→23:58)
[2021-10-19 17:28] LABS: CLARITY URINE CLEAR (CLEAR); COLOR URINE YELLOW (YELLOW); KETONES URINE NEGATIVE (NEGATIVE); LEUKOCYTE ESTERASE URINE 1+ (NEGATIVE); NITRITE URINE NEGATIVE (NEGATIVE); OCCULT BLOOD URINE 1+ (NEGATIVE); PROTEIN URINE 1+ (NEGATIVE); SPECIFIC GRAVITY URINE 1.006 (1.005-1.030); UROBILINOGEN URINE 0.2 E.U./dL (0.2-1.0)
[2021-10-19 17:55] LABS: SODIUM URINE RANDOM 79 mEq/L
[2021-10-19 18:00] LABS: CREATININE URINE RANDOM < 10.0 mg/dL
[2021-10-19] MEDS: ENOXAPARIN 30MG/0.3ML SYR SUBCUT SCH (23:58)
[2021-10-20] VITALS (97 sets, daily range): BP systolic 63–182; BP diastolic 26–122
[2021-10-20] MEDS: SODIUM CHLORIDE 0.9% 1,000 ML IV SCH ×2 (05:21→16:12)
[2021-10-20] MEDS: NYSTATIN 100,000 UNITS/ML 5ML UDC SSW SCH ×3 (05:21→18:08)
[2021-10-20] MEDS: PHENYLEPHRINE 100 MG in DEXT 5% WATER 240 ML IV PRN (06:11)
[2021-10-20 06:12] LABS: BASOPHILS % 0.3 % (0.0-2.0); EOSINOPHILS % 3.6 % (0.0-5.0); HEMATOCRIT. 26.6 % (42.0-52.0); HEMOGLOBIN. 8.8 g/dL (14.0-18.0); LYMPHOCYTES % 21.1 % (20.0-50.0); MEAN CORPUSCULAR HEMOGLOBIN 29.2 pg (28.0-32.0); MEAN CORPUSCULAR VOLUME 87.9 fL (80.0-94.0); MEAN PLATELET VOLUME 8.1 fl (7.4-10.4); MONOCYTES % 11.8 % (2.0-8.0); NEUTROPHILS % 63.2 % (40.0-76.0); PLATELET 255 x1000/uL (130-400); RED BLOOD CELL COUNT 3.03 mill/uL (4.7-6.1); RED CELL DISTRIBUTION WIDTH 15.1 % (11.6-14.6)
[2021-10-20 06:56] LABS: PHOSPHORUS 3.5 mg/dL (2.5-4.9)
[2021-10-20] MEDS: IPRATROPIUM/ALBUTEROL 0.5-3(2.5)MG/3ML NEB HHN SCH ×3 (07:57→20:17)
[2021-10-20] MEDS: PANTOPRAZOLE SODIUM 40 MG/VIAL IV SCH (08:52)
[2021-10-20] MEDS: POTASSIUM CHLORIDE 20MEQ TABLET SR PO SCH (08:53)
[2021-10-20] MEDS: MIDODRINE HCL 5MG TABLET PO SCH ×2 (08:53→16:12)
[2021-10-20] MEDS ORDERED: MAGNESIUM 4 G PREMIX 100 ML IV NR (10:00)
[2021-10-21] VITALS (101 sets, daily range): BP systolic 41–160; BP diastolic 15–111
[2021-10-21] MEDS: NYSTATIN 100,000 UNITS/ML 5ML UDC SSW SCH ×4 (00:02→18:45)
[2021-10-21] MEDS: ENOXAPARIN 30MG/0.3ML SYR SUBCUT SCH (00:02)
[2021-10-21] MEDS: MIDODRINE HCL 5MG TABLET PO SCH ×3 (00:03→15:40)
[2021-10-21] MEDS: SODIUM CHLORIDE 0.9% 1,000 ML IV SCH ×2 (01:45→11:44)
[2021-10-21] MEDS: IPRATROPIUM/ALBUTEROL 0.5-3(2.5)MG/3ML NEB HHN SCH ×4 (02:16→20:31)
[2021-10-21 05:57] LABS: PHOSPHORUS 3.4 mg/dL (2.5-4.9)
[2021-10-21 06:05] LABS: BASOPHILS % 0.6 % (0.0-2.0); EOSINOPHILS % 1.5 % (0.0-5.0); HEMOGLOBIN. 8.1 g/dL (14.0-18.0); LYMPHOCYTES % 19.1 % (20.0-50.0); MEAN CORPUSCULAR HEMOGLOBIN 29.1 pg (28.0-32.0); MEAN CORPUSCULAR VOLUME 89.7 fL (80.0-94.0); MEAN PLATELET VOLUME 8.1 fl (7.4-10.4); MONOCYTES % 9.6 % (2.0-8.0); NEUTROPHILS % 69.2 % (40.0-76.0); PLATELET 223 x1000/uL (130-400); RED BLOOD CELL COUNT 2.79 mill/uL (4.7-6.1); RED CELL DISTRIBUTION WIDTH 15.4 % (11.6-14.6)
[2021-10-21] MEDS: POTASSIUM CHLORIDE 20MEQ TABLET SR PO SCH (09:03)
[2021-10-21] MEDS: PANTOPRAZOLE SODIUM 40 MG/VIAL IV SCH (09:04)
[2021-10-21 09:07] LABS: *CREATININE RANDOM URINE 7.3 mg/dL (Not Estab.); MICROALBUMIN RANDOM URINE 41.8 ug/mL (Not Estab.)
[2021-10-22] VITALS (96 sets, daily range): BP systolic 82–172; BP diastolic 44–114
[2021-10-22] MEDS: MIDODRINE HCL 5MG TABLET PO SCH ×3 (00:24→17:01)
[2021-10-22] MEDS: NYSTATIN 100,000 UNITS/ML 5ML UDC SSW SCH ×4 (00:24→17:01)
[2021-10-22] MEDS: ENOXAPARIN 30MG/0.3ML SYR SUBCUT SCH (00:24)
[2021-10-22] MEDS: SODIUM CHLORIDE 0.9% 1,000 ML IV SCH ×2 (01:00→07:07)
[2021-10-22] MEDS: IPRATROPIUM/ALBUTEROL 0.5-3(2.5)MG/3ML NEB HHN SCH ×2 (02:02→08:06)
[2021-10-22 06:11] LABS: BASOPHILS % 0.7 % (0.0-2.0); HEMATOCRIT. 26.7 % (42.0-52.0); HEMOGLOBIN. 8.8 g/dL (14.0-18.0); LYMPHOCYTES % 29.4 % (20.0-50.0); MEAN CORPUSCULAR HEMOGLOBIN 29.1 pg (28.0-32.0); MEAN CORPUSCULAR VOLUME 88.4 fL (80.0-94.0); MEAN PLATELET VOLUME 7.9 fl (7.4-10.4); MONOCYTES % 9.5 % (2.0-8.0); NEUTROPHILS % 57.4 % (40.0-76.0); PLATELET 266 x1000/uL (130-400); RED BLOOD CELL COUNT 3.02 mill/uL (4.7-6.1); RED CELL DISTRIBUTION WIDTH 15.8 % (11.6-14.6)
[2021-10-22 06:36] LABS: PHOSPHORUS 3.6 mg/dL (2.5-4.9)
[2021-10-22] MEDS: PANTOPRAZOLE SODIUM 40 MG/VIAL IV SCH (09:31)
[2021-10-22] MEDS: POTASSIUM CHLORIDE 20MEQ TABLET SR PO SCH (09:32)
[2021-10-23] VITALS (74 sets, daily range): BP systolic 82–175; BP diastolic 27–114
[2021-10-23] MEDS: NYSTATIN 100,000 UNITS/ML 5ML UDC SSW SCH ×4 (00:16→17:16)
[2021-10-23] MEDS: ENOXAPARIN 30MG/0.3ML SYR SUBCUT SCH ×2 (00:16→22:21)
[2021-10-23] MEDS: MIDODRINE HCL 5MG TABLET PO SCH ×3 (00:18→17:16)
[2021-10-23 05:29] LABS: BASOPHILS % 0.8 % (0.0-2.0); EOSINOPHILS % 3.7 % (0.0-5.0); HEMATOCRIT. 26.5 % (42.0-52.0); HEMOGLOBIN. 8.8 g/dL (14.0-18.0); MEAN CORPUSCULAR VOLUME 87.4 fL (80.0-94.0); MEAN PLATELET VOLUME 7.7 fl (7.4-10.4); MONOCYTES % 8.8 % (2.0-8.0); NEUTROPHILS % 60.7 % (40.0-76.0); PLATELET 296 x1000/uL (130-400); RED BLOOD CELL COUNT 3.03 mill/uL (4.7-6.1); RED CELL DISTRIBUTION WIDTH 15.8 % (11.6-14.6)
[2021-10-23 05:32] LABS: PHOSPHORUS 3.7 mg/dL (2.5-4.9)
[2021-10-23] MEDS: POTASSIUM CHLORIDE 20MEQ TABLET SR PO SCH (09:12)
[2021-10-23] MEDS: PANTOPRAZOLE SODIUM 40 MG/VIAL IV SCH (09:13)
[2021-10-23] MEDS ORDERED: MAGNESIUM 2 G PREMIX 50 ML IV NR (10:00)
[2021-10-24] VITALS (65 sets, daily range): BP systolic 87–160; BP diastolic 37–81
[2021-10-24] MEDS: NYSTATIN 100,000 UNITS/ML 5ML UDC SSW SCH ×5 (00:13→23:40)
[2021-10-24] MEDS: MIDODRINE HCL 5MG TABLET PO SCH ×4 (00:14→23:41)
[2021-10-24 06:10] LABS: BASOPHILS % 0.5 % (0.0-2.0); EOSINOPHILS % 2.4 % (0.0-5.0); HEMATOCRIT. 26.4 % (42.0-52.0); HEMOGLOBIN. 8.7 g/dL (14.0-18.0); LYMPHOCYTES % 14.8 % (20.0-50.0); MEAN CORPUSCULAR VOLUME 87.6 fL (80.0-94.0); MEAN PLATELET VOLUME 7.8 fl (7.4-10.4); MONOCYTES % 5.6 % (2.0-8.0); NEUTROPHILS % 76.7 % (40.0-76.0); PLATELET 266 x1000/uL (130-400); RED BLOOD CELL COUNT 3.01 mill/uL (4.7-6.1); RED CELL DISTRIBUTION WIDTH 15.9 % (11.6-14.6)
[2021-10-24 06:31] LABS: PHOSPHORUS 3.6 mg/dL (2.5-4.9)
[2021-10-24] MEDS: MAGNESIUM OXIDE 400MG TABLET PO SCH (09:13)
[2021-10-24] MEDS: PANTOPRAZOLE SODIUM 40 MG/VIAL IV SCH (09:13)
[2021-10-24] MEDS: ASCORBIC ACID 500 MG TABLET PO SCH (12:32)
[2021-10-24] MEDS: ZINC SULFATE 220 MG ( 50 ) CAPSULE PO SCH (12:32)
[2021-10-24] MEDS: ENOXAPARIN 30MG/0.3ML SYR SUBCUT SCH (23:03)
[2021-10-25] VITALS (44 sets, daily range): BP systolic 87–164; BP diastolic 41–82
[2021-10-25] MEDS: NYSTATIN 100,000 UNITS/ML 5ML UDC SSW SCH ×2 (06:11→12:00)
[2021-10-25 06:12] LABS: BASOPHILS % 0.7 % (0.0-2.0); EOSINOPHILS % 2.4 % (0.0-5.0); HEMATOCRIT. 29.9 % (42.0-52.0); MEAN CORPUSCULAR HEMOGLOBIN 29.3 pg (28.0-32.0); MEAN CORPUSCULAR VOLUME 87.7 fL (80.0-94.0); MEAN PLATELET VOLUME 8.4 fl (7.4-10.4); MONOCYTES % 4.3 % (2.0-8.0); NEUTROPHILS % 72.6 % (40.0-76.0); PLATELET 351 x1000/uL (130-400); RED BLOOD CELL COUNT 3.41 mill/uL (4.7-6.1)
[2021-10-25 06:21] LABS: PHOSPHORUS 3.5 mg/dL (2.5-4.9)
[2021-10-25] MEDS: ZINC SULFATE 220 MG ( 50 ) CAPSULE PO SCH (08:12)
[2021-10-25] MEDS: ASCORBIC ACID 500 MG TABLET PO SCH (08:12)
[2021-10-25] MEDS: PANTOPRAZOLE SODIUM 40 MG/VIAL IV SCH (08:12)
[2021-10-25] MEDS: MIDODRINE HCL 5MG TABLET PO SCH ×3 (08:12→23:42)
[2021-10-25] MEDS: MAGNESIUM OXIDE 400MG TABLET PO SCH (08:12)
[2021-10-25] MEDS: ENOXAPARIN 30MG/0.3ML SYR SUBCUT SCH ×2 (23:00→23:41)
[2021-10-26] VITALS (71 sets, daily range): BP systolic 66–179; BP diastolic 24–99
[2021-10-26 06:00] LABS: BASOPHILS % 0.7 % (0.0-2.0); EOSINOPHILS % 1.6 % (0.0-5.0); HEMATOCRIT. 30.6 % (42.0-52.0); HEMOGLOBIN. 9.8 g/dL (14.0-18.0); MEAN CORPUSCULAR VOLUME 90.2 fL (80.0-94.0); MEAN PLATELET VOLUME 8.5 fl (7.4-10.4); MONOCYTES % 4.8 % (2.0-8.0); NEUTROPHILS % 67.9 % (40.0-76.0); PLATELET 302 x1000/uL (130-400); RED BLOOD CELL COUNT 3.39 mill/uL (4.7-6.1); RED CELL DISTRIBUTION WIDTH 16.6 % (11.6-14.6)
[2021-10-26 06:43] LABS: PHOSPHORUS 3.3 mg/dL (2.5-4.9)
[2021-10-26] MEDS: PANTOPRAZOLE SODIUM 40 MG/VIAL IV SCH (08:15)
[2021-10-26] MEDS: ZINC SULFATE 220 MG ( 50 ) CAPSULE PO SCH (08:16)
[2021-10-26] MEDS: MAGNESIUM OXIDE 400MG TABLET PO SCH (08:16)
[2021-10-26] MEDS: ASCORBIC ACID 500 MG TABLET PO SCH (08:16)
[2021-10-26] MEDS: MIDODRINE HCL 5MG TABLET PO SCH ×2 (08:16→16:50)
[2021-10-26] MEDS ORDERED: GUAIFENESIN-DM 200MG-20MG/10ML UDC PO PRN (10:45)
[2021-10-26] MEDS ORDERED: NOREPINEPHRINE 32 MG in DEXT 5% WATER 218 ML IV PRN (14:45)
[2021-10-26] MEDS ORDERED: DOPAMINE 800MG PREMIX (DOUBLE) 250 ML IV PRN (15:00)
[2021-10-26] MEDS: SODIUM CHLORIDE 0.9% 1,000 ML IV SCH (16:50)
[2021-10-27] VITALS (83 sets, daily range): BP systolic 47–158; BP diastolic 24–87
[2021-10-27] MEDS: ENOXAPARIN 30MG/0.3ML SYR SUBCUT SCH (00:02)
[2021-10-27] MEDS: MIDODRINE HCL 5MG TABLET PO SCH ×3 (00:50→15:59)
[2021-10-27 06:12] LABS: BASOPHILS % 0.7 % (0.0-2.0); EOSINOPHILS % 1.7 % (0.0-5.0); HEMOGLOBIN. 9.2 g/dL (14.0-18.0); LYMPHOCYTES % 25.3 % (20.0-50.0); MEAN CORPUSCULAR HEMOGLOBIN 28.9 pg (28.0-32.0); MEAN CORPUSCULAR VOLUME 87.5 fL (80.0-94.0); MEAN PLATELET VOLUME 8.1 fl (7.4-10.4); MONOCYTES % 5.5 % (2.0-8.0); NEUTROPHILS % 66.8 % (40.0-76.0); PLATELET 298 x1000/uL (130-400); RED CELL DISTRIBUTION WIDTH 16.2 % (11.6-14.6)
[2021-10-27 06:49] LABS: PHOSPHORUS 3.2 mg/dL (2.5-4.9)
[2021-10-27] MEDS: ZINC SULFATE 220 MG ( 50 ) CAPSULE PO SCH (09:00)
[2021-10-27] MEDS: MAGNESIUM OXIDE 400MG TABLET PO SCH (09:00)
[2021-10-27] MEDS: ASCORBIC ACID 500 MG TABLET PO SCH (09:00)
[2021-10-27] MEDS: PANTOPRAZOLE SODIUM 40 MG/VIAL IV SCH (09:23)
[2021-10-27] MEDS: SODIUM CHLORIDE 0.9% 1,000 ML IV SCH (09:24)
[2021-10-27] MEDS ORDERED: MAGNESIUM 2 G PREMIX 50 ML IV SCH (10:00)
[2021-10-27 10:22] LABS: T4 FREE 1.52 ng/dL (0.76-1.46)
[2021-10-27] MEDS ORDERED: MAGNESIUM 2 G PREMIX 50 ML IV NR (14:30)
[2021-10-27] MEDS: ENOXAPARIN 40MG/0.4ML SYR SUBCUT SCH (21:11)
[2021-10-28] VITALS (74 sets, daily range): BP systolic 90–188; BP diastolic 48–125
[2021-10-28] MEDS: MIDODRINE HCL 5MG TABLET PO SCH ×3 (00:32→17:15)
[2021-10-28] MEDS: SODIUM CHLORIDE 0.9% 1,000 ML IV SCH (04:50)
[2021-10-28 06:38] LABS: EOSINOPHILS % 1.8 % (0.0-5.0); HEMATOCRIT. 27.4 % (42.0-52.0); MEAN CORPUSCULAR HEMOGLOBIN 29.1 pg (28.0-32.0); MEAN CORPUSCULAR VOLUME 88.4 fL (80.0-94.0); MEAN PLATELET VOLUME 7.7 fl (7.4-10.4); MONOCYTES % 4.8 % (2.0-8.0); NEUTROPHILS % 72.4 % (40.0-76.0); PLATELET 275 x1000/uL (130-400); RED CELL DISTRIBUTION WIDTH 16.3 % (11.6-14.6)
[2021-10-28] MEDS ORDERED: FENTANYL CITRATE/PF 50MCG/ML 2ML VIAL ONE (06:53)
[2021-10-28] MEDS ORDERED: MIDAZOLAM HCL 2 MG/2 ML VIAL ONE (06:53)
[2021-10-28] MEDS ORDERED: ATROPINE SULFATE 1MG/10ML SYR ONE (06:53)
[2021-10-28] MEDS ORDERED: LIDOCAINE HCL/PF 2% 20MG/ML 5 ML/VIAL ONE (06:54)
[2021-10-28] MEDS ORDERED: CEFAZOLIN SODIUM 1000MG/VIAL ONE (06:54)
[2021-10-28] MEDS ORDERED: IODIXANOL 320MG/ML 100 ML BOTTLE IV ONE (06:54)
[2021-10-28] MEDS ORDERED: GENTAMICIN/NS IRRIGATION 500 ML IR ONE (06:55)
[2021-10-28 07:14] LABS: PHOSPHORUS 3.6 mg/dL (2.5-4.9); T4 FREE 1.37 ng/dL (0.76-1.46)
[2021-10-28] MEDS: ASCORBIC ACID 500 MG TABLET PO SCH (10:06)
[2021-10-28] MEDS: PANTOPRAZOLE SODIUM 40 MG/VIAL IV SCH (10:06)
[2021-10-28] MEDS: MAGNESIUM OXIDE 400MG TABLET PO SCH (10:07)
[2021-10-28] MEDS: ZINC SULFATE 220 MG ( 50 ) CAPSULE PO SCH (10:07)
[2021-10-28] MEDS: CEFAZOLIN 1000MG PREMIX 50 ML IV SCH ×2 (11:42→20:30)
[2021-10-28] MEDS: ONDANSETRON HCL 4MG/2ML INJ IV PRN (13:38)
[2021-10-28] MEDS: ENOXAPARIN 40MG/0.4ML SYR SUBCUT SCH (20:30)
[2021-10-28] MEDS ORDERED: HYDRALAZINE 20MG/ML VIAL IV PRN (23:00)
[2021-10-29] VITALS (59 sets, daily range): BP systolic 62–130; BP diastolic 21–78
[2021-10-29] MEDS: MIDODRINE HCL 5MG TABLET PO SCH ×4 (00:38→21:27)
[2021-10-29] MEDS: CEFAZOLIN 1000MG PREMIX 50 ML IV SCH (04:08)
[2021-10-29 06:44] LABS: BASOPHILS % 0.9 % (0.0-2.0); EOSINOPHILS % 2.1 % (0.0-5.0); HEMATOCRIT. 26.8 % (42.0-52.0); HEMOGLOBIN. 8.9 g/dL (14.0-18.0); LYMPHOCYTES % 20.7 % (20.0-50.0); MEAN CORPUSCULAR HEMOGLOBIN 29.2 pg (28.0-32.0); MEAN CORPUSCULAR VOLUME 87.6 fL (80.0-94.0); MEAN PLATELET VOLUME 8.4 fl (7.4-10.4); MONOCYTES % 4.9 % (2.0-8.0); NEUTROPHILS % 71.4 % (40.0-76.0); PLATELET 285 x1000/uL (130-400); RED BLOOD CELL COUNT 3.06 mill/uL (4.7-6.1); RED CELL DISTRIBUTION WIDTH 15.9 % (11.6-14.6)
[2021-10-29] MEDS: ASCORBIC ACID 500 MG TABLET PO SCH (08:45)
[2021-10-29] MEDS: PANTOPRAZOLE SODIUM 40 MG/VIAL IV SCH (08:45)
[2021-10-29] MEDS: ZINC SULFATE 220 MG ( 50 ) CAPSULE PO SCH (08:45)
[2021-10-29] MEDS: MAGNESIUM OXIDE 400MG TABLET PO SCH (08:45)
[2021-10-29 09:11] LABS: PHOSPHORUS 3.2 mg/dL (2.5-4.9)
[2021-10-29] MEDS: ENOXAPARIN 40MG/0.4ML SYR SUBCUT SCH (21:27)
[2021-10-30] VITALS (21 sets, daily range): BP systolic 63–136; BP diastolic 36–79
[2021-10-30] MEDS: MIDODRINE HCL 5MG TABLET PO SCH ×3 (05:08→22:03)
[2021-10-30 07:10] LABS: BASOPHILS % 0.7 % (0.0-2.0); EOSINOPHILS % 1.8 % (0.0-5.0); HEMATOCRIT. 27.5 % (42.0-52.0); HEMOGLOBIN. 9.2 g/dL (14.0-18.0); MEAN CORPUSCULAR HEMOGLOBIN 29.2 pg (28.0-32.0); MEAN CORPUSCULAR VOLUME 87.9 fL (80.0-94.0); MEAN PLATELET VOLUME 8.5 fl (7.4-10.4); MONOCYTES % 6.4 % (2.0-8.0); NEUTROPHILS % 66.1 % (40.0-76.0); PLATELET 283 x1000/uL (130-400); RED BLOOD CELL COUNT 3.13 mill/uL (4.7-6.1); RED CELL DISTRIBUTION WIDTH 16.7 % (11.6-14.6)
[2021-10-30 07:14] LABS: CHLORIDE 103 mEq/L (98-107)
[2021-10-30 07:19] LABS: PHOSPHORUS 2.8 mg/dL (2.5-4.9)
[2021-10-30] MEDS: ZINC SULFATE 220 MG ( 50 ) CAPSULE PO SCH (10:03)
[2021-10-30] MEDS: MAGNESIUM OXIDE 400MG TABLET PO SCH (10:03)
[2021-10-30] MEDS: ASCORBIC ACID 500 MG TABLET PO SCH (10:03)
[2021-10-30] MEDS: ENOXAPARIN 40MG/0.4ML SYR SUBCUT SCH (22:03)
[2021-10-31] VITALS (11 sets, daily range): BP systolic 92–144; BP diastolic 55–79
[2021-10-31 06:29] LABS: CHLORIDE 105 mEq/L (98-107)
[2021-10-31 06:30] LABS: BASOPHILS % 0.7 % (0.0-2.0); EOSINOPHILS % 3.5 % (0.0-5.0); HEMOGLOBIN. 9.7 g/dL (14.0-18.0); LYMPHOCYTES % 28.9 % (20.0-50.0); MEAN CORPUSCULAR HEMOGLOBIN 29.1 pg (28.0-32.0); MEAN CORPUSCULAR VOLUME 90.3 fL (80.0-94.0); MEAN PLATELET VOLUME 8.7 fl (7.4-10.4); MONOCYTES % 7.1 % (2.0-8.0); NEUTROPHILS % 59.8 % (40.0-76.0); PLATELET 246 x1000/uL (130-400); RED BLOOD CELL COUNT 3.32 mill/uL (4.7-6.1); RED CELL DISTRIBUTION WIDTH 17.1 % (11.6-14.6)
[2021-10-31 06:38] LABS: PHOSPHORUS 2.9 mg/dL (2.5-4.9)
[2021-10-31] MEDS: MIDODRINE HCL 5MG TABLET PO SCH ×2 (07:22→13:54)
[2021-10-31] MEDS: ASCORBIC ACID 500 MG TABLET PO SCH (09:18)
[2021-10-31] MEDS: MAGNESIUM OXIDE 400MG TABLET PO SCH (09:18)
[2021-10-31] MEDS: ZINC SULFATE 220 MG ( 50 ) CAPSULE PO SCH (09:18)
[2021-10-31] MEDS ORDERED: ZINC220C2 PO (10:52)
[2021-10-31] MEDS ORDERED: MIDO5TAB4 PO (10:52)
[2021-10-31] MEDS ORDERED: MAGN400C PO (10:52)
[2021-10-31] MEDS ORDERED: MAGNESIUM 2 G PREMIX 50 ML IV SCH (11:00)
[2021-10-31] MEDS ORDERED: APIX5TAB PO (12:40)
== END 2021-10-31 15:45 | disposition home health service (06) | DRG 853 ==
LOC: ER 08:54 → CVICU 12:10 → ENRESERV 13:07 → SUPCPDRO 16:48 → ENRESERV 17:09 → 5EST 10-29 18:58
PROVIDERS: ADMIT Internal Medicine; ATTEND Internal Medicine
PROC: 0BH17EZ Insertion of Endotracheal Airway into Trachea, Via Natural or Artificial Opening (ICD-10-PCS; 2021-10-10)
PROC: 5A1945Z Respiratory Ventilation, 24-96 Consecutive Hours (ICD-10-PCS; 2021-10-10)
PROC: 30233N1 Transfusion of Nonautologous Red Blood Cells into Peripheral Vein, Percutaneous Approach (ICD-10-PCS; 2021-10-10)
PROC: 5A09357 Assistance with Respiratory Ventilation, Less than 24 Consecutive Hours, Continuous Positive Airway Pressure (ICD-10-PCS; 2021-10-17)
PROC: 5A09357 Assistance with Respiratory Ventilation, Less than 24 Consecutive Hours, Continuous Positive Airway Pressure (ICD-10-PCS; 2021-10-18)
PROC: 0KBP0ZZ Excision of Left Hip Muscle, Open Approach (ICD-10-PCS; principal; 2021-10-27)
PROC: 0KBN0ZZ Excision of Right Hip Muscle, Open Approach (ICD-10-PCS; 2021-10-27)
PROC: 0JH606Z Insertion of Pacemaker, Dual Chamber into Chest Subcutaneous Tissue and Fascia, Open Approach (ICD-10-PCS; 2021-10-28)
PROC: 02H60JZ Insertion of Pacemaker Lead into Right Atrium, Open Approach (ICD-10-PCS; 2021-10-28)
PROC: 02HK0JZ Insertion of Pacemaker Lead into Right Ventricle, Open Approach (ICD-10-PCS; 2021-10-28)
DX: A41.59 Other Gram-negative sepsis (principal); E43 Unspecified severe protein-calorie malnutrition; J96.01 Acute respiratory failure with hypoxia; J96.02 Acute respiratory failure with hypercapnia; L89.154 Pressure ulcer of sacral region, stage 4; L89.214 Pressure ulcer of right hip, stage 4; L89.224 Pressure ulcer of left hip, stage 4; R65.21 Severe sepsis with septic shock; N17.0 Acute kidney failure with tubular necrosis; G93.41 Metabolic encephalopathy; G82.20 Paraplegia, unspecified; J93.83 Other pneumothorax; E87.2 Acidosis; I47.1 Supraventricular tachycardia; K92.2 Gastrointestinal hemorrhage, unspecified; N13.6 Pyonephrosis; I48.0 Paroxysmal atrial fibrillation; I49.5 Sick sinus syndrome; Z20.822 Contact with and (suspected) exposure to COVID-19; B96.20 Unspecified Escherichia coli [E. coli] as the cause of diseases classified elsewhere; B96.5 Pseudomonas (aeruginosa) (mallei) (pseudomallei) as the cause of diseases classified elsewhere; D63.8 Anemia in other chronic diseases classified elsewhere; E03.9 Hypothyroidism, unspecified; R74.01 Elevation of levels of liver transaminase levels; E11.9 Type 2 diabetes mellitus without complications; E87.6 Hypokalemia; I11.9 Hypertensive heart disease without heart failure; R94.6 Abnormal results of thyroid function studies; N31.9 Neuromuscular dysfunction of bladder, unspecified; B96.1 Klebsiella pneumoniae [K. pneumoniae] as the cause of diseases classified elsewhere; Z68.25 Body mass index [BMI] 25.0-25.9, adult; Z86.718 Personal history of other venous thrombosis and embolism; Z82.49 Family history of ischemic heart disease and other diseases of the circulatory system; Z93.3 Colostomy status; Z95.828 Presence of other vascular implants and grafts
CPT/HCPCS: 31500; 33208; 36415; 36600; 71045; 71260; 74018; 74177; 76770; 80048; 80053; 81003; 82040; 82043; 82375; 82533; 82570; 82805; 83520; 83605; 83735; 83880; 84100; 84134; 84145; 84300; 84439; 84443; 84478; 84481; 84484; 85025; 85027; 85379; 85384; 86022; 86376; 86850; 86900; 86920; 87070; 87077; 87186; 87426; 93005; 93306; 93308; 93970; 94002; 94003; 94640; 94660; 97161; 99291; A6261; C1785; C1892; C1893; C1898; C9113; C9803; J0282; J0330; J0360; J0461; J0690; J0696; J0770; J1160; J1265; J1650; J1940; J1956; J2250; J2370; J2405; J2704; J3010; J3475; J3490; J7030; J7050; J7060; P9016; Q9967; A4315